=== PATIENT | male | born 1950 | race Caucasian/White ===

== ENCOUNTER → 2016-11-19 | Outpatient (CLI) | payer OTHER ==
[~2016-11-19] MED LIST: ASPCH81X PO; CALC200T PO; CLL250 PO; COEN1CAP37 PO; HYDR-5688 PO; LOSA1TAB PO; MULT-513 PO; OMEG10007 PO; PANT1TAB48 PO; PRAV20TA PO; TACR1CAP PO; TYLOTC500 PO; ZNTT/150 PO
--- NOTE | 2016-11-19 13:18 | DIAGNOSTIC IMAGING REPORT ---
RIGHT ANKLE MIN 3 VIEWS CLINICAL HISTORY: Right ankle fracture COMPARISON: 09/18/2016 DISCUSSION: There is a healing oblique/spiral fracture of the distal fibula. There is no change in alignment. Degenerative changes are present within the tibiotalar joint. There is a plantar calcaneal spur. There is medial malleolar spurring. There is a corticated ossicle adjacent the medial malleolus which is felt to be old. IMPRESSION: No change in alignment. Healing oblique/spiral fracture of distal fibula. Electronically signed by: Tha Snider M.D. 11/19/2016 1:16 PM Dictated Date/Time: 11/19/2016 1:15 PM
== END | disposition home or self-care (01) ==
LOC: C.RDSM 07:02
PROVIDERS: ATTEND Physical Medicine & Rehabilitation Sports Medicine
DX: S82.891A Other fracture of right lower leg, initial encounter for closed fracture (principal); X58.XXXA Exposure to other specified factors, initial encounter

== ENCOUNTER 2017-02-23 17:19 | Emergency (ER) | payer OTHER ==
[~2017-02-23] VITALS: Ht 208.3 cm; Wt 104.8 kg
[~2017-02-23 17:19] MED LIST changes: -COEN1CAP37 PO; -HYDR-5688 PO; -OMEG10007 PO; -ZNTT/150 PO
[2017-02-23 17:22] VITALS: TEMP 36.5; Ht 208.3 cm; Wt 104.8 kg
[2017-02-23] MEDS ORDERED: ZNTT/150 PO (17:55)
[2017-02-23] MEDS ORDERED: OMEG10007 PO (17:55)
[2017-02-23] MEDS ORDERED: COEN1CAP37 PO (17:55)
--- NOTE | 2017-02-23 18:14 | DIAGNOSTIC IMAGING REPORT ---
RIGHT HIP 2 VIEWS HISTORY: right hip pain Right COMPARISON: None. FINDINGS: There is no fracture or dislocation. Soft tissues are unremarkable. Mild osteoarthritis of the right hip. Surgical clips within the right groin. IMPRESSION: Mild right hip osteoarthritis. No fracture or dislocation. Electronically signed by: Skinny Avendano M.D. 02/23/2017 6:12 PM Dictated Date/Time: 02/23/2017 6:11 PM
--- NOTE | 2017-02-23 18:17 | DIAGNOSTIC IMAGING REPORT ---
LUMBAR SPINE 5 VIEWS HISTORY: right hip/leg pain COMPARISON: None. FINDINGS: There is no fracture. No subluxation. Partial fusion of the upper right sacroiliac joint. Mild facet degenerative changes seen within the lower lumbar spine. Moderate disc space narrowing at L3-L4 and L4-L5. Mild disc space narrowing within the lower thoracic spine and upper lumbar spine. IMPRESSION: 1. No fracture or subluxation within the lumbar spine. 2. Mild to moderate degenerative changes as described above. 3. Partial fusion of the right sacroiliac joint. Electronically signed by: Skinny Avendano M.D. 02/23/2017 6:15 PM Dictated Date/Time: 02/23/2017 6:13 PM
[2017-02-23] MEDS ORDERED: HYDR-5688 PO (18:49)
--- NOTE | 2017-02-23 18:52 | EMERGENCY ROOM VISIT NOTE ---
History First contact with patient: 17:27 Chief Complaint: LEG PAIN,LEG INJURY Stated Complaint: CAN'T PUT WEIGHT ON RT KNEE History of Present Illness The patient is a 66 year old male who presents to the Emergency Room with complaints of right leg pain and inability to bear weight. The patient states that he has had difficulty bearing weight on the right leg since last week. He reports that prior to developing the pain, he had been golfing, walking and mulching, which is increased activity from his normal. He reports that he has a shooting pain on the outside of the leg. He also has a pain in the right buttock. The pain improves after walking. The patient denies swelling or redness. He denies any specific injury to the leg. He denies any history of blood clots. He does have a history of a heart transplant and states he is unable to take anti-inflammatories. Review of Systems A complete 10 point review of systems was reviewed with the patient with pertinent positives and negatives as per history of present illness. All else were negative. Past Medical/Surgical History Medical Problems: (1) Hypertension Nos (2) LVAD (left ventricular assist device) present (3) Old Myocardial Infarct Social History Smoking Status: Never Smoker Marital Status: Housing Status: lives with family Occupation Status: employed Current/Historical Medications Scheduled Aspirin (Aspirin Chewable), 81 MG PO DAILY Calcium Carbonate-Vitamin D (Oscal 500/200 D-3), 1 TAB PO BID Coenzyme Q10 (Ubidecarenone) (Co Q-10), 200 MG PO QPM Fish Oil (Depauw-3), 1 CAP PO DAILY Losartan Potassium (Cozaar), 50 MG PO BID Multivitamins/Minerals (Mvi With Minerals), 1 TAB PO DAILY Mycophenolate Mofetil (Mycophenolate Mofetil), 500 MG PO BID Pravastatin (Pravachol ), 20 MG PO DAILY Ranitidine (Zantac), 150 MG PO DAILY Tacrolimus (Prograf), 2 MG PO BID Scheduled PRN Hydrocodone/Acetaminophen 5MG/325MG ([place] 5MG/325MG), 1-2 TABLET PO Q4H PRN for Pain Allergies Coded Allergies: No Known Allergies (Unverified , 02/23/17) Physical Exam Vital Signs Date Time Temp Pulse Resp B/P Pulse Ox O2 Delivery O2 Flow Rate FiO2 02/23/17 19:10 86 18 191/121 95 02/23/17 18:08 194/123 02/23/17 17:22 36.5 94 18 216/128 97 Room Air Physical Exam VITALS: Vitals are noted on the nurse's note and reviewed by myself. Vital signs stable. GENERAL: This is a 66-year-old male, in no acute distress, nondiaphoretic, well- developed well-nourished. SKIN: Capillary reflex less than 2 seconds. HEART: Regular rate and rhythm without murmurs gallops or rubs. LUNGS: Clear to auscultation bilaterally without wheezes, rales or rhonchi. MUSCULOSKELETAL: No significant tenderness to palpation of the right hip or femur. No tenderness of the lumbar spinous processes. Full range of motion of the lower extremities bilaterally. NEURO: Patient was alert and oriented to person place and time. Normal sensation to light and sharp touch. Medical Decision & Procedures ER Provider Diagnostic Interpretation: RIGHT HIP 2 VIEWS FINDINGS: There is no fracture or dislocation. Soft tissues are unremarkable. Mild osteoarthritis of the right hip. Surgical clips within the right groin. IMPRESSION: Mild right hip osteoarthritis. No fracture or dislocation. LUMBAR SPINE 5 VIEWS FINDINGS: There is no fracture. No subluxation. Partial fusion of the upper right sacroiliac joint. Mild facet degenerative changes seen within the lower lumbar spine. Moderate disc space narrowing at L3-L4 and L4-L5. Mild disc space narrowing within the lower thoracic spine and upper lumbar spine. IMPRESSION: 1. No fracture or subluxation within the lumbar spine. 2. Mild to moderate degenerative changes as described above. 3. Partial fusion of the right sacroiliac joint. Medications Administered Medications (Trade) Dose Ordered Sig/Joseph Route Start Time Stop Time Status Last Admin Dose Admin Acetaminophen/ Hydrocodone Bitart ([place] 5/325mg Home Pack) 1 homepack UD ONCE PO 02/23/17 19:00 02/23/17 19:01 DC 02/23/17 19:09 1 HOMEPACK Medical Decision Differential diagnosis includes sciatica, hip arthritis, bursitis, muscle strain , IT band syndrome, among others. The patient was evaluated as above. X-rays of the hip and lumbar spine were obtained and read by radiology which did show some degeneration but no acute findings. The patient likely has some arthritis and a do feel that he would benefit from follow-up with orthopedics. He was given a home pack and prescription of [place] for pain. He was instructed to follow-up with his primary care provider this week for possible orthopedic referral and further evaluation. He will return here for any new/worsening symptoms. He verbalized understanding of my assessment and treatment plan and was discharged home in good condition. The patient was independently evaluated by Dr. Hightower, ED attending physician, who agreed with my assessment and treatment plan. [place] Drug Monitoring Program Search Results: patient reviewed within database, no issues identified Impression Primary Impression: Leg pain, right Departure Information Dispostion Home / Self-Care Condition GOOD Prescriptions Hydrocodone/Acetaminophen 5MG/325MG ([place] 5MG/325MG) Tab 1-2 TABLET PO Q4H Y for Pain, #12 TAB For Initial Treatment Prov: Raya Roy PA-C 02/23/17 Referrals Dayton Palacios MD (PCP) Patient Instructions [facility] Additional Instructions You have been prescribed [place] to be used for pain control. Take 1-2 tablets every 4-6 hours as needed for pain. This is a narcotic medication. You cannot drive or consume alcohol while on this medicine. This medicine should only be used for pain that cannot be controlled with [id number] pain medicines. For pain control, you can use the following [id number] medicines (if >12 yo): - Regular strength (325mg/tab) Tylenol (acetaminophen) 2 tabs every 4-6 hours as needed. Do not exceed 12 tablets in a 24 hour period. Avoid taking more than 4 grams (4000 mg) of Tylenol per day. This includes any other sources of acetaminophen you may take on a regular basis. - Regular strength (200 mg/tab) Advil (ibuprofen) 1-2 tabs every 4-6 hours as needed. Do not exceed a dose of 3200 mg per day. Apply ice to the hip/leg as needed for pain. Follow-up with [facility] this week. Return to the emergency department with any worsening or new/concerning symptoms.
--- NOTE | 2017-02-23 18:57 | EMERGENCY ROOM VISIT NOTE ---
ED Visit Note First contact with patient: 17:27 This Patient was discussed with the physician Underwriting Sales Representative, Manuela Dos Santos PA-C. The pertinent historical and physical exam findings were confirmed. I agree with the studies ordered and with the interpretations of these studies. I agree with the disposition and care plan.
[2017-02-23] MEDS ORDERED: NORCO 5/325MG HOME PACK PO ONE (19:00)
[2017-02-23 19:10] VITALS: BP 191/121; PULSE 86; O2SAT 95
== END 2017-02-23 19:10 | disposition home or self-care (01) ==
LOC: C.EDB 17:20 → C.EDD 19:10
DX: M79.604 Pain in right leg (principal); Z94.1 Heart transplant status; I10 Essential (primary) hypertension; I25.2 Old myocardial infarction; Z79.82 Long term (current) use of aspirin; Z79.899 Other long term (current) drug therapy

== ENCOUNTER → 2017-05-21 | Outpatient (CLI) | payer OTHER ==
[~2017-05-21] MED LIST changes: +COEN1CAP37 PO; +HYDR-5688 PO; +OMEG10007 PO; -PANT1TAB48 PO; -TYLOTC500 PO; +ZNTT/150 PO
--- NOTE | 2017-05-21 09:17 | DIAGNOSTIC IMAGING REPORT ---
RIGHT ANKLE MIN 3 VIEWS HISTORY: 66 years-old Male RIGHT DISTAL FIBULA FX Right COMPARISON: Right ankle radiographs 11/19/2016 TECHNIQUE: 3 views of the right ankle FINDINGS: There is complete healing of the previously described oblique fracture of the distal fibula. Decreased amount of soft tissue swelling is seen from comparison study. There is no acute fracture or dislocation identified. There is prominent spurring about the calcaneus, talonavicular joint and tibiotalar joint. There is a small joint effusion about the ankle. IMPRESSION: 1. Complete healing of the previously described oblique fracture of the distal fibula with decreased amount of soft tissue swelling. 2. No acute fracture or dislocation is identified. The above report was generated using voice recognition software. It may contain grammatical, syntax or spelling errors. Electronically signed by: Gabriel Lopez M.D. 05/21/2017 9:15 AM Dictated Date/Time: 05/21/2017 9:13 AM
== END | disposition home or self-care (01) ==
LOC: C.RDSM 12:20
PROVIDERS: ATTEND Physician Assistant
DX: S82.821D Torus fracture of lower end of right fibula, subsequent encounter for fracture with routine healing (principal); X58.XXXD Exposure to other specified factors, subsequent encounter

== ENCOUNTER 2025-01-26 19:29 | Observation (INO) ==
[2025-01-26 20:04] LABS: Basophils # (auto) 0.03 K/uL (0.00-0.20); Basophils % (auto) 0.5 %; Eosinophils # (auto) 0.13 K/uL (0.00-0.50); Hematocrit (blood only) 27.8 % (42.0-52.0); Hemoglobin 9.6 g/dl (14.0-18.0); Immature Granulocytes # (auto) 0.04 K/uL (0.01-0.20); Immature Granulocytes % (auto) 0.6 %; Lymphocytes # (auto) 0.68 K/uL (1.20-3.40); Lymphocytes % (auto) 10.4 %; Mean Corpuscular Hemoglobin 29.6 pg (25.0-34.0); Mean Corpuscular Hgb Conc 34.5 g/dL (32.0-36.0); Mean Corpuscular Volume 85.8 fL (80.0-100.0); Mean Platelet Volume 9.4 fL (9.4-12.4); Monocytes % (auto) 12.2 %; Neutrophils # (auto) 4.86 K/uL (1.40-6.50); Neutrophils % (auto) 74.3 %; Platelet Count 178 K/uL (130-400); RDW Coefficient of Variation 12.7 % (11.5-14.5); RDW Standard Deviation 39.4 fL (36.4-46.3); Red Blood Count 3.24 M/uL (4.70-6.10); White Blood Count 6.54 K/ul (4.8-10.8)
[2025-01-26 20:23] LABS: Albumin Globulin Ratio 1.2 (0.9-2); Albumin Level 3.4 gm/dl (3.4-5.0); BUN Creatinine Ratio 15.9 (10-20); Bilirubin,Total 0.5 mg/dl (0.2-1.0); Calcium 9.2 mg/dl (8.6-10.3); Creatinine Clr Calc Pharmacy 38.2 ml/min; Globulin 2.8 gm/dl (2.5-4.0); Magnesium 1.8 mg/dl (1.7-2.4); Potassium 4.3 mmol/L (3.5-5.1); Total Protein 6.2 gm/dl (6.0-8.3)
--- NOTE | 2025-01-26 20:23 | Emergency Department Note ---
Impression & Plan Fever ED Provider Note HISTORY OF PRESENT ILLNESS: Patient is a 74-year-old male presenting with fever. Patient reports that he developed a fever today, with his most recent fever being 101F at 1800. He states that he took Tylenol shortly after his fever at around 1605. Patient reports he is a heart transplant patient as of 2013. He is on CellCept. Reports that 1 week ago he had spinal surgery performed at [facility]. Reports he was doing well up until today, when he started having pain in his right lateral buttock. He states that this pain is similar to his previous pain prior to spinal surgery. Denies any new numbness or tingling down his legs. Denies any bowel or bladder incontinence. He denies any chest pain or shortness of breath. Denies any anticoagulation or antiplatelet therapies. He reports he was previously on before the spinal surgery, but has not initiated that again yet. He denies any recent sick contact exposures. Denies any abdominal pain, nausea or vomiting. He denies being drainage from his spinal incision. ROS: as above PHYSICAL EXAM: Constitutional: Patient appears in no acute distress. HENT: Head: Normocephalic and atraumatic. Eyes: EOMI, PERRL Mouth/Throat: Mucous membranes moist. Neck: Trachea midline. Neck supple. Cardiovascular: RRR, No murmurs, rubs or gallops. Intact distal pulses. Pulmonary/Chest: No respiratory distress. Breath sounds clear and equal bilaterally. No wheezes or rales. Abdominal: Abdomen soft, no tenderness, rebound or guarding. Back: No midline spinal tenderness, no paraspinal tenderness, no CVA tenderness. Lower lumbar spinal incision is well-healed. No obvious drainage from the wound. Musculoskeletal: No edema, tenderness or deformity noted. Skin: Warm and dry. No rash, erythema, pallor or cyanosis Psychiatric: Appropriate mood and affect for situation. Neurological: Alert and keenly responsive. CN II-XII grossly intact, moving all extremities equally and fully. MDM: - Vitals signs showed hypertension - History obtained via patient. History as above. - Chronic conditions affecting care: heart transplant; GERD; HLD - Differential diagnoses include, but are not limited to: Pneumonia; UTI; viral syndrome; post op infection; bacteremia - Order placed for continuous cardiac monitoring. At this time, monitor showed rate of 77 bpm with normal sinus rhythm, per my interpretation. - External medical records reviewed. Nephrology office visit note dated 12/18/2024 was reviewed. Patient follows in the clinic for stage III CKD. Baseline creatinine is 1.7-2.0. - EKG image interpreted by myself showed normal sinus rhythm. Rate 85 bpm. QT 384. No acute ischemic changes. Noted to have a right bundle branch block, which has been seen on previous EKGs. - Laboratory workup interpreted by myself showed normal WBC; normal PT/INR; stable electrolytes; normal procalcitonin; normal lactic acid; baseline CKD (Cr 1.95) - UA negative for infection - Blood cultures obtained, given patient's immunocompromise state. - Viral respiratory panel negative - CXR image reviewed by myself is negative for pneumonia, per my interpretation. - Given 50 mcg IV fentanyl for pain control. 2 g IV Rocephin empirically. On reassessment, the patient is sitting much more comfortably in bed. He reports his pain is improved. - CT lumbar spine wo contrast obtained. - Patient has been afebrile while in the emergency department. However, given his immunocompromise state, will admit for observation until cultures result. Unclear source of patient's fever at this time. He does not show any concern for surgical incision infection, as his incision is clean/dry/intact. - Discussion was had with caseworker about patient's case and need for admission - Hospitalist consulted for admission - [facility] [facility] for further evaluation and management. ASSESSMENT AND PLAN: Diagnosis: fever Plan: admit Past Med/Surg History Problem List Fever (Acute) Lumbar stenosis with neurogenic claudication Lumbar radiculopathy Status post heart transplant 2013 follows [facility] -- and follows with Dr Roland [id number] locally Vitamin D deficiency Hypertension Chronic kidney disease with active medical management without dialysis, stage 3 (moderate) COVID (Acute) Benign prostatic hyperplasia with urinary obstruction GERD (gastroesophageal reflux disease) Dysphagia Anemia Encounter for pre-operative examination LVAD (left ventricular assist device) present (Chronic) april 2013 Bacteremia (Acute) Leg pain, right (Acute) Old myocardial infarct (Acute) Ocular hypertension, unspecified eye (Acute) Heart transplanted (Acute) Medical History SCC (squamous cell carcinoma) Myocardial Infarction april 2013 during a cardiac cath Surgical History Hx of heart surgery placement of LVAD 04/2013 [facility] History of left ventricular assist device (LVAD) april 2013 for ~1 year prior to heart transplant following cardiac arrest during a cardiac cath. (PT DOES NOT CURRENLTY HAVE LVAD) History of colonoscopy Status post Mohs surgery History of tonsillectomy History of cardiac cath april 2013 Family History Family/Other No pertinent family history Other No family history of adverse response to anesthesia Social History Smoking Status: Former smoker Tobacco Type: Cigarettes Age Started Using Tobacco: 19; Age Quit Using Tobacco: 39; Second Hand Exposure: No; Do You Dip or Chew Tobacco: No; Hx Alcohol Use: Yes Alcohol type: beer and hard liquor Alcohol Intake Frequency: 2-3 x/Week Hx Substance Use: No Preferred Language: Turkmen Communication Ability: Effective Visual Impairment: Limited Hearing Ability: Normal Floor Finisher Helper Required: No Beliefs That Will Affect Care: None Current Living Situation: Spouse current occupational status: retired 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 How many Children do You have: 4 Feels Safe at Home: Yes Diet: regular caffeine: Yes (1-2 coffees daily) Dental Care, Regularly: Yes Physical Activity Frequency: 1-2 Times per Week Seatbelt Use: always Sunscreen Use: Yes Do you think of yourself as: straight/heterosexual Gender Identity: Male Assistive Devices: Glasses Allergies Allergies Allergy/AdvReac Type Severity Reaction Status Date / Time No Known Allergies Allergy Verified 01/27/25 00:09 Home Meds Home Medications Medication Instructions Recorded Confirmed calcium 500 mg (as 1 tab PO DAILY 07/05/18 01/27/25 carbonate)-vitamin D3 5 mcg (200 unit) tablet (Calcium 500 + D) mycophenolate mofetil 250 mg 250 mg PO BID 07/05/18 01/27/25 capsule (CellCept) amlodipine 10 mg tablet 5 mg PO HS 06/28/20 01/27/25 amoxicillin 500 mg capsule 2,000 mg PO ONCE PRN dental 06/28/20 01/27/25 procedures carbidopa 25 mg-levodopa 100 mg 2 tab PO BID 10/23/23 01/27/25 tablet fluocinolone 0.01 % topical cream 1 applic topical BID PRN Skin 10/23/23 01/27/25 Irritation metoprolol succinate 25 mg 25 mg PO HS 10/23/23 01/27/25 tablet,extended release 24 hr sirolimus 1 mg tablet 2 mg PO QAM 10/23/23 01/27/25 solifenacin 5 mg tablet 5 mg PO HS 10/23/23 01/27/25 tamsulosin 0.4 mg capsule 0.4 mg PO BID 10/23/23 01/27/25 rasagiline 1 mg tablet 1 mg PO QAM 03/17/24 01/27/25 valsartan 80 mg tablet 80 mg PO HS 03/17/24 01/27/25 Results & Data (ED) Vital Signs Vital Signs - 24 hr 01/26/25 19:41 01/26/25 20:24 01/26/25 21:30 Temperature 37.4 C Temperature Source Oral Pulse Rate 87 85 Pulse Rate [Apical] 78 Pulse Rate from SpO2 Sensor Respiratory Rate 16 18 Respiratory Effort / Characteristics Respiratory Depth Blood Pressure 144/74 H Blood Pressure [Right Arm] 123/74 Blood Pressure Mean 97 Blood Pressure Mean [Right Arm] 90 Blood Pressure Position [Right Arm] Pulse Oximetry 93 95 Oxygen Delivery Method Room Air Room Air Sepsis Recent Fever Within 48 Hours Yes Sepsis New/Unexplained Change in Mental Status No Sepsis Action Taken by Nursing No Action Required 01/26/25 23:06 01/26/25 23:08 01/26/25 23:11 Temperature 37.6 C Temperature Source Oral Pulse Rate 77 Pulse Rate [Apical] 76 Pulse Rate from SpO2 Sensor 76 Respiratory Rate 23 19 Respiratory Effort / Characteristics Non-Labored Spontaneous Respiratory Depth Normal Blood Pressure Blood Pressure [Right Arm] 114/74 Blood Pressure Mean Blood Pressure Mean [Right Arm] 87 Blood Pressure Position [Right Arm] Lying Pulse Oximetry 95 94 Oxygen Delivery Method Room Air Sepsis Recent Fever Within 48 Hours Sepsis New/Unexplained Change in Mental Status Sepsis Action Taken by Nursing 01/26/25 23:12 01/26/25 23:32 01/26/25 23:32 Temperature Temperature Source Pulse Rate 77 Pulse Rate [Apical] Pulse Rate from SpO2 Sensor 77 Respiratory Rate 21 Respiratory Effort / Characteristics Respiratory Depth Blood Pressure 136/76 136/76 Blood Pressure [Right Arm] Blood Pressure Mean 95 95 Blood Pressure Mean [Right Arm] Blood Pressure Position [Right Arm] Pulse Oximetry 92 Oxygen Delivery Method Sepsis Recent Fever Within 48 Hours Sepsis New/Unexplained Change in Mental Status Sepsis Action Taken by Nursing 01/26/25 23:33 01/27/25 00:10 Temperature 37.0 C Temperature Source Oral Pulse Rate Pulse Rate [Apical] Pulse Rate from SpO2 Sensor 79 Respiratory Rate Respiratory Effort / Characteristics Respiratory Depth Blood Pressure Blood Pressure [Right Arm] Blood Pressure Mean Blood Pressure Mean [Right Arm] Blood Pressure Position [Right Arm] Pulse Oximetry 96 Oxygen Delivery Method Sepsis Recent Fever Within 48 Hours Sepsis New/Unexplained Change in Mental Status Sepsis Action Taken by Nursing Laboratory Data 01/26/25 19:40 01/26/25 19:40 Lab Results 01/26/25 01/26/25 Range/Units 19:40 22:45 WBC 6.54 (4.8-10.8) K/ul RBC 3.24 L (4.70-6.10) M/uL Hgb 9.6 L (14.0-18.0) g/dl Hct 27.8 L (42.0-52.0) % MCV 85.8 (80.0-100.0) fL MCH 29.6 (25.0-34.0) pg MCHC 34.5 (32.0-36.0) g/dL RDW Std Deviation 39.4 (36.4-46.3) fL RDW Coeff of Ree 12.7 (11.5-14.5) % Plt Count 178 (130-400) K/uL MPV 9.4 (9.4-12.4) fL Immature Gran % (Auto) 0.6 % Neut % (Auto) 74.3 % Lymph % (Auto) 10.4 % [place] % (Auto) 12.2 % Eos % (Auto) 2.0 % Baso % (Auto) 0.5 % Neut # (Auto) 4.86 (1.40-6.50) K/uL Lymph # (Auto) 0.68 L (1.20-3.40) K/uL [place] # (Auto) 0.80 H (0.11-0.59) K/uL Eos # (Auto) 0.13 (0.00-0.50) K/uL Baso # (Auto) 0.03 (0.00-0.20) K/uL Immature Gran # (Auto) 0.04 (0.01-0.20) K/uL PT 10.6 (9.0-12.0) Seconds INR 1.0 (0.9-1.1) APTT 25 (21-31) Seconds PTT Ratio 0.9 Sodium 138 (136-145) mmol/L Potassium 4.3 (3.5-5.1) mmol/L Chloride 105 (98-107) mmol/L Carbon Dioxide 27 (21-32) mmol/L Anion Gap 6 (3-11) BUN 31 H (6-23) mg/dl Creatinine 1.95 H (0.6-1.4) mg/dl Est Cr Clr Drug Dosing 38.2 ml/min eGFR 35.22 BUN/Creatinine Ratio 15.9 (10-20) Glucose 103 H (70-99(Fasting)) mg/dl Lactate 0.7 (0.4-2.0) mmol/L Calcium 9.2 (8.6-10.3) mg/dl Magnesium 1.8 (1.7-2.4) mg/dl Total Bilirubin 0.5 (0.2-1.0) mg/dl AST 12 L (13-39) U/L ALT 8 (7-52) U/L Alkaline Phosphatase 51 (34-104) U/L Troponin I High Sens 4.6 (0-20) pg/ml Total Protein 6.2 (6.0-8.3) gm/dl Albumin 3.4 (3.4-5.0) gm/dl Globulin 2.8 (2.5-4.0) gm/dl Albumin/Globulin Ratio 1.2 (0.9-2) Procalcitonin 0.16 (0-0.5) ng/ml Urine Color Yellow Urine Appearance Clear (Clear) Urine pH 5.5 (4.5-7.5) Ur Specific [place] 1.020 (1.000-1.030) Urine Protein 1+ H (Negative) Urine Glucose (UA) Negative (Negative) Urine Ketones Trace H (Negative) Urine Blood Negative (Negative) Urine Nitrite Negative (Negative) Urine Bilirubin Negative (Negative) Urine Urobilinogen Negative (Negative) Ur Leukocyte Esterase Negative (Negative) Urine WBC (Auto) 0-5 (0-5) /hpf Urine RBC (Auto) 0-2 (0-2) /hpf U Hyaline Cast (Auto) 0-2 (0-2) /lpf U Epithel Cells (Auto) 0-2 (0-2) /hpf Urine Bacteria (Auto) None Seen (None Seen) Adenovirus (PCR) Not Detected (NotDetected) B. pertussis DNA (PCR) Not Detected (NotDetected) B.parapertussis DNA PCR Not Detected (NotDetected) C. pneumoniae DNA (PCR) Not Detected (NotDetected) Coronavirus OC43 (PCR) Not Detected (NotDetected) Coronavirus HKU1 (PCR) Not Detected (NotDetected) Coronavirus 229E (PCR) Not Detected (NotDetected) SARS-CoV-2 (PCR) Not Detected (NotDetected) Coronavirus NL63 (PCR) Not Detected (NotDetected) Human Metapneumovir PCR Not Detected (NotDetected) Influenza Type A (PCR) Not Detected (NotDetected) Influenza Type B (PCR) Not Detected (NotDetected) M. pneumoniae (PCR) Not Detected (NotDetected) Parainfluenza 1 (PCR) Not Detected (NotDetected) Parainfluenza 2 (PCR) Not Detected (NotDetected) Parainfluenza 3 (PCR) Not Detected (NotDetected) Parainfluenza 4 (PCR) Not Detected (NotDetected) RSV (PCR) Not Detected (NotDetected) Entero/Rhino (PCR) Not Detected (NotDetected) Administered Medications Discontinued Medications Fentanyl Citrate (Fentanyl Citrate Pf 100 Mcg/2 Ml Vial) 50 mcg IV NOW STA Stop: 01/26/25 22:18 Last Admin: 01/26/25 22:44 Dose: 50 mcg Documented By: ANABELLE Ceftriaxone Sodium (Rocephin) 2,000 mg in 50 mls @ 100 mls/hr IV NOW STA Stop: 01/27/25 00:13 Last Infusion: 01/27/25 00:33 Dose: Infused Documented By: Admin: 01/26/25 23:59 Dose: 100 mls/hr Documented By: LAURA Imaging Data Radiologist's Impression: Chest X-Ray 01/26/25 19:55 Exam(s): XR CXR 1 VIEW EXAM: XR Chest, 1 View CLINICAL HISTORY: Reason for exam: Sepsis. TECHNIQUE: Frontal view of the chest. COMPARISON: Prior chest x-ray from March 19, 2024. FINDINGS: Lungs: Unremarkable. No consolidation. Pleural space: There is blunting the left costophrenic angle. No pneumothorax. Heart: Unremarkable. No cardiomegaly. Mediastinum: Unremarkable. Normal mediastinal contour. Bones/joints: Status post median sternotomy with sternal wires intact. No acute fracture. IMPRESSION: No evidence of acute cardiopulmonary process. Electronically signed by: Lois Jordan MD 01/26/25 22:31 PM Discharge Plan Visit Data Chief Complaint: Fever Stated Complaint: FEVER, WEAKNESS ED Provider: Nya Pace Discharge Problem: Fever Forms Stand Alone Forms: [facility] Prescriptions Prescriptions: No Action sirolimus 1 mg tablet 2 mg PO QAM solifenacin 5 mg tablet 5 mg PO HS tamsulosin 0.4 mg capsule 0.4 mg PO BID carbidopa-levodopa 25-100 mg tablet 2 tab PO BID fluocinolone 0.01 % cream 1 applic topical BID PRN (Reason: Skin Irritation) metoprolol succinate 25 mg tablet extended release 24 hr 25 mg PO HS valsartan 80 mg tablet 80 mg PO HS rasagiline 1 mg tablet 1 mg PO QAM mycophenolate mofetil [CellCept] 250 mg capsule 250 mg PO BID calcium carbonate-vitamin D3 [Calcium 500 + D] 500 mg(1,250mg) -200 unit Tablet 1 tab PO DAILY amlodipine 10 mg Tablet 5 mg PO HS amoxicillin 500 mg capsule 2,000 mg PO ONCE PRN (Reason: dental procedures) Referrals Referrals: Uziel Ahmadi MD [Primary Care Provider] -
[2025-01-26 20:30] LABS: Troponin I High Sensitivity 4.6 pg/ml (0-20)
[2025-01-26 20:33] LABS: Partial Thromboplastin Ratio 0.9; Partial Thromboplastin Time 25 Seconds (21-31); Prothrombin Time 10.6 Seconds (9.0-12.0)
[2025-01-26 21:00] LABS: Adenovirus PCR Not Detected (NotDetected); Bordetella parapertussis PCR Not Detected (NotDetected); Bordetella pertussis PCR Not Detected (NotDetected); Chlamydia pneumoniae PCR Not Detected (NotDetected); Coronavirus 229E PCR Not Detected (NotDetected); Coronavirus CoV-2 (COVID19)PCR Not Detected (NotDetected); Coronavirus HKU1 PCR Not Detected (NotDetected); Coronavirus NL63 PCR Not Detected (NotDetected); Coronavirus OC43PCR Not Detected (NotDetected); Human Metapneumovirus PCR Not Detected (NotDetected); Influenza A PCR Not Detected (NotDetected); Influenza B PCR Not Detected (NotDetected); Mycoplasma pneumoniae PCR Not Detected (NotDetected); Parainfluenza Virus 1 PCR Not Detected (NotDetected); Parainfluenza Virus 2 PCR Not Detected (NotDetected); Parainfluenza Virus 3 PCR Not Detected (NotDetected); Parainfluenza Virus 4 PCR Not Detected (NotDetected); Respiratory Syncytial VirusPCR Not Detected (NotDetected); Rhinovirus/Enterovirus PCR Not Detected (NotDetected)
--- NOTE | 2025-01-26 22:32 | XRay Report ---
Exam(s): XR CXR 1 VIEW EXAM: XR Chest, 1 View CLINICAL HISTORY: Reason for exam: Sepsis. TECHNIQUE: Frontal view of the chest. COMPARISON: Prior chest x-ray from March 19, 2024. FINDINGS: Lungs: Unremarkable. No consolidation. Pleural space: There is blunting the left costophrenic angle. No pneumothorax. Heart: Unremarkable. No cardiomegaly. Mediastinum: Unremarkable. Normal mediastinal contour. Bones/joints: Status post median sternotomy with sternal wires intact. No acute fracture. IMPRESSION: No evidence of acute cardiopulmonary process. Electronically signed by: Lois Jordan MD 01/26/25 22:31 PM
[2025-01-26] MEDS: fentaNYL citrate PF 100 MCG/2 ML VIAL IV STA (22:44)
[2025-01-26 22:58] LABS: Appearance Urine Clear (Clear); Bacteria Urine Automated None Seen (None Seen); Bilirubin Urine Negative (Negative); Blood Urine Negative (Negative); Cast Urine Automated 0-2 /lpf (0-2); Color Urine Yellow; Epithelial Cell Urine Auto 0-2 /hpf (0-2); Glucose Urine UA Negative (Negative); Ketones Urine Trace (Negative); Leukocyte Esterase Urine Negative (Negative); Nitrite Urine Negative (Negative); Protein Urine 1+ (Negative); RBC Urine Automated 0-2 /hpf (0-2); Urobilinogen Urine Negative (Negative); WBC Urine Automated 0-5 /hpf (0-5); pH Urine 5.5 (4.5-7.5)
[2025-01-26] MEDS: cefTRIAXone SODIUM 2,000 MG/50 ML BAG IV STA (23:59)
--- NOTE | 2025-01-27 00:40 | History & Physical Report ---
Date of Service January 27, 2025 Assessment & Plan (1) Fever: (2) Anemia: (3) Heart transplanted: Plan 74-year-old male PMHx heart transplant on CellCept (2013), HTN, CKD stage III, BPH, GERD, ocular hypertension, and anemia who presents for reported fever day [employer]. ED evaluation reveals no leukocytosis, H&H 9.6/27.8; PT/INR WNL; CMP creatinine 1.95, BUN 31, glucose 103, AST 12; procalcitonin 0.16; UA without infection; BioFire negative; CXR without acute findings; lumbar spine CT pending official read; EKG NSR with RBBB at 85 bpm. Provided with ceftriaxone 2 g IV and fentanyl 50 mcg IV in ED. #Fever unknown origin Fever day prior to arrival, Tmax 101 F and alleviated with Tylenol. Heart transplant patient (2013), on CellCept. No clear source of infection. Provided with 1 dose ceftriaxone 2 g IV in ED. No murmur auscultated on exam. Last dental procedure 2 months ago, took amoxicillin. Area of recent surgical intervention well healing. - CBC w/o leukocytosis; CMP without acute findings; BioFire negative - CBC am - UA negative for infection - CXR without acute findings - Lumbar spine CT pending official read - Cont. Ceftriaxone empirically - pending blood cx - If no clear source or if clinical course changes, can consider echo (most recent 2022) #Anemia Anemia per prior history, no active bleeding per patient. With history of CKD. - CBC H/H 9.6/27.8 - Iron panel, UIBC, vitamin B12, folate pending - CBC am #Heart transplant recipient- 2013 for ischemic cardiomyopathy, follows with cardiology most recent visit being 06/09/2024; CellCept, sirolimus - continue #PD- Carbidopa levodopa, rasagiline - continue #BPH- Solifenacin, tamsulosin - continue #HTN- Amlodipine, metoprolol succinate, valsartan - continue #CKD stage III- Follows with nephrology, most recent visit 06/22/2024, baseline creatinine 1.7-2, creatinine at admission 1.95- BMP am Dispo: Admit, med/sx VTE prophylaxis: SCD This document was dictated utilizing [employer]. Please excuse any grammatical errors that may be secondary to use of this software. Admission and Anticipated Discharge Date Admission Date: 01/27/2025 History of Present Illness Chief Complaint: Fever Primary Care Provider: Uziel Ahmadi MD 74-year-old male PMHx heart transplant on CellCept (2013), HTN, CKD stage III, BPH, GERD, ocular hypertension, and anemia who presents for reported fever day [employer]. Reports fever of 101 F with associated sweating on the day of arrival. Relieved with Tylenol. Seen at [facility] approximately 1 week [employer] for lumbar fusion, states that the area feels that is healing well and he is not having much pain or many symptoms to the area. Did have some buttocks tingling which has resolved, occasional feeling of "darts to skin" on LLE which is relieved with rubbing the area. No current pain. Otherwise specifically denies SOB, cough, URI symptoms, LUTS, skin lesions, or abdominal pain/N/V/D/C. Also denies chest pain or palpitations. Has not been around anyone that has been sick. Reports that his last dental procedure was approximately 2 months ago which was a cleaning and he took his amoxicillin as prescribed. ED evaluation reveals no leukocytosis, H&H 9.6/27.8; PT/INR WNL; CMP creatinine 1.95, BUN 31, glucose 103, AST 12; procalcitonin 0.16; UA without infection; BioFire negative; CXR without acute findings; lumbar spine CT pending official read; EKG NSR with RBBB at 85 bpm. Provided with ceftriaxone 2 g IV and fentanyl 50 mcg IV in ED. Please see Dr. Goncalves's attestation for adjustments/additions to treatment plan. Allergies Allergy/AdvReac Type Severity Reaction Status Date / Time No Known Allergies Allergy Verified 01/27/25 00:09 Home Medications Medication Instructions Recorded Confirmed Type calcium 500 mg (as 1 tab PO DAILY 07/05/18 01/27/25 History carbonate)-vitamin D3 5 mcg (200 unit) tablet (Calcium 500 + D) mycophenolate mofetil 250 mg 250 mg PO BID 07/05/18 01/27/25 History capsule (CellCept) amlodipine 10 mg tablet 5 mg PO HS 06/28/20 01/27/25 History amoxicillin 500 mg capsule 2,000 mg PO ONCE PRN dental 06/28/20 01/27/25 History procedures carbidopa 25 mg-levodopa 100 mg 2 tab PO BID 10/23/23 01/27/25 History tablet fluocinolone 0.01 % topical cream 1 applic topical BID PRN Skin 10/23/23 History Irritation metoprolol succinate 25 mg 25 mg PO HS 10/23/23 01/27/25 History tablet,extended release 24 hr sirolimus 1 mg tablet 2 mg PO QAM 10/23/23 01/27/25 History solifenacin 5 mg tablet 5 mg PO HS 10/23/23 01/27/25 History tamsulosin 0.4 mg capsule 0.4 mg PO BID 10/23/23 01/27/25 History rasagiline 1 mg tablet 1 mg PO QAM 03/17/24 01/27/25 History valsartan 80 mg tablet 80 mg PO HS 03/17/24 01/27/25 History gabapentin 300 mg capsule 300 mg PO BID 01/27/25 01/27/25 History Past Med/Surg History Problem List Fever (Acute) Lumbar stenosis with neurogenic claudication Lumbar radiculopathy Status post heart transplant 2013 follows with [facility] [place] annually -- and follows with Dr Roland [id number] locally Vitamin D deficiency Hypertension Chronic kidney disease with active medical management without dialysis, stage 3 (moderate) COVID (Acute) Benign prostatic hyperplasia with urinary obstruction GERD (gastroesophageal reflux disease) Dysphagia Anemia Encounter for pre-operative examination LVAD (left ventricular assist device) present (Chronic) april 2013 Bacteremia (Acute) Leg pain, right (Acute) Old myocardial infarct (Acute) Ocular hypertension, unspecified eye (Acute) Heart transplanted (Acute) Medical History SCC (squamous cell carcinoma) Myocardial Infarction april 2013 during a cardiac cath Surgical History Hx of heart surgery placement of LVAD 04/2013 [facility] History of left ventricular assist device (LVAD) april 2013 for ~1 year prior to heart transplant following cardiac arrest during a cardiac cath. (PT DOES NOT CURRENLTY HAVE LVAD) History of colonoscopy Status post Mohs surgery History of tonsillectomy History of cardiac cath april 2013 Family History Family/Other No pertinent family history Other No family history of adverse response to anesthesia Social History Smoking Status: Former smoker Tobacco Type: Cigarettes Age Started Using Tobacco: 19; Age Quit Using Tobacco: 39; Second Hand Exposure: No; Do You Dip or Chew Tobacco: No; Hx Alcohol Use: Yes Alcohol type: wine Alcohol Intake Frequency: 2-3 x/Week Hx Substance Use: No Preferred Language: Senegalese Communication Ability: Effective Visual Impairment: Limited Hearing Ability: Normal Geophysical Manager Required: No Beliefs That Will Affect Care: None Current Living Situation: Spouse Current Living Situation Comment: [facility] at [facility] current occupational status: retired current occupation: [place] [employer] How many Children do You have: 4 Other Information That Helps Us Care for You: No Feels Safe at Home: Yes Safety Concerns: Feels Safe At This Time Diet: regular caffeine: Yes (1-2 coffees daily) Dental Care, Regularly: Yes Physical Activity Frequency: 1-2 Times per Week Seatbelt Use: always Sunscreen Use: Yes Do you think of yourself as: straight/heterosexual Gender Identity: Male Assistive Devices: Cane and Walker Review of Systems Review of Systems: All systems reviewed & are unremarkable except as noted in Subjective Physical Exam Physical Exam: General: No acute distress Skin: Warm and dry; No nodules on skin; nail beds without red/linear lesions; surgical area well healing Head: Normocephalic, atraumatic Eyes: PERRL, conjunctivae clear, sclera non-icteric ENT: External ear and ear canal without swelling; nose atraumatic; good de ntition, tongue normal appearance, pharynx normal Neck: Supple, no LAD Cardio: RRR, no M/G/R, S2 slightly louder than S1 Resp: No respiratory distress, Lungs CTA in all lobes bilaterally, no wheezes, rales, or rhonchi Abdomen: Soft, symmetric, nontender; No masses or hepatosplenomegaly; Bowel sounds normoactive MSK: No deformities; pulses palpable and equal; no edema. Neuro: Awake, alert; Sensation intact bilaterally; CN grossly intact Psych: Appropriate mood and affect; good judgement and insight. present in room at time of visit. Results & Data Results & Data Vital Signs (Past 12 Hours) Vital Signs Temp Pulse Pulse Resp BP BP Pulse Ox 01/27/25 00:10 37.0 C 01/26/25 23:33 96 01/26/25 23:32 136/76 01/26/25 23:32 136/76 01/26/25 23:12 77 21 92 01/26/25 23:11 37.6 C 01/26/25 23:08 76 19 114/74 94 01/26/25 23:06 77 23 95 01/26/25 21:30 78 18 123/74 95 01/26/25 20:24 85 01/26/25 19:41 37.4 C 87 16 144/74 H 93 O2 Del Method 01/27/25 00:10 01/26/25 23:33 01/26/25 23:32 01/26/25 23:32 01/26/25 23:12 01/26/25 23:11 01/26/25 23:08 Room Air 01/26/25 23:06 01/26/25 21:30 Room Air 01/26/25 20:24 01/26/25 19:41 Room Air Laboratory Results 01/26/25 20:42 Aerobic Blood Culture - Pending Blood Anaerobic Blood Culture - Pending 01/26/25 19:40 Aerobic Blood Culture - Pending Blood Anaerobic Blood Culture - Pending 01/26/25 01/26/25 22:45 19:40 WBC 6.54 RBC 3.24 L Hgb 9.6 L Hct 27.8 L MCV 85.8 MCH 29.6 MCHC 34.5 RDW Std Deviation 39.4 RDW Coeff of Ree 12.7 Plt Count 178 MPV 9.4 Immature Gran % (Auto) 0.6 Neut % (Auto) 74.3 Lymph % (Auto) 10.4 Fleming % (Auto) 12.2 Eos % (Auto) 2.0 Baso % (Auto) 0.5 Neut # (Auto) 4.86 Lymph # (Auto) 0.68 L Fleming # (Auto) 0.80 H Eos # (Auto) 0.13 Baso # (Auto) 0.03 Immature Gran # (Auto) 0.04 PT 10.6 INR 1.0 APTT 25 PTT Ratio 0.9 Sodium 138 Potassium 4.3 Chloride 105 Carbon Dioxide 27 Anion Gap 6 BUN 31 H Creatinine 1.95 H Est Cr Clr Drug Dosing 38.2 eGFR 35.22 BUN/Creatinine Ratio 15.9 Glucose 103 H Lactate 0.7 Calcium 9.2 Magnesium 1.8 Total Bilirubin 0.5 AST 12 L ALT 8 Alkaline Phosphatase 51 Troponin I High Sens 4.6 Total Protein 6.2 Albumin 3.4 Globulin 2.8 Albumin/Globulin Ratio 1.2 Procalcitonin 0.16 Urine Color Yellow Urine Appearance Clear Urine pH 5.5 Ur Specific Nichols 1.020 Urine Protein 1+ H Urine Glucose (UA) Negative Urine Ketones Trace H Urine Blood Negative Urine Nitrite Negative Urine Bilirubin Negative Urine Urobilinogen Negative Ur Leukocyte Esterase Negative Urine WBC (Auto) 0-5 Urine RBC (Auto) 0-2 U Hyaline Cast (Auto) 0-2 U Epithel Cells (Auto) 0-2 Urine Bacteria (Auto) None Seen Adenovirus (PCR) Not Detected B. pertussis DNA (PCR) Not Detected B.parapertussis DNA PCR Not Detected C. pneumoniae DNA (PCR) Not Detected Coronavirus OC43 (PCR) Not Detected Coronavirus HKU1 (PCR) Not Detected Coronavirus 229E (PCR) Not Detected SARS-CoV-2 (PCR) Not Detected Coronavirus NL63 (PCR) Not Detected Human Metapneumovir PCR Not Detected Influenza Type A (PCR) Not Detected Influenza Type B (PCR) Not Detected M. pneumoniae (PCR) Not Detected Parainfluenza 1 (PCR) Not Detected Parainfluenza 2 (PCR) Not Detected Parainfluenza 3 (PCR) Not Detected Parainfluenza 4 (PCR) Not Detected RSV (PCR) Not Detected Entero/Rhino (PCR) Not Detected Diagnostic Findings Chest X-Ray 01/26/25 19:55 Exam(s): XR CXR 1 VIEW EXAM: XR Chest, 1 View CLINICAL HISTORY: Reason for exam: Sepsis. TECHNIQUE: Frontal view of the chest. COMPARISON: Prior chest x-ray from March 19, 2024. FINDINGS: Lungs: Unremarkable. No consolidation. Pleural space: There is blunting the left costophrenic angle. No pneumothorax. Heart: Unremarkable. No cardiomegaly. Mediastinum: Unremarkable. Normal mediastinal contour. Bones/joints: Status post median sternotomy with sternal wires intact. No acute fracture. IMPRESSION: No evidence of acute cardiopulmonary process. Electronically signed by: Lois Jordan MD 01/26/25 22:31 PM Medications Administered Ceftriaxone 2 g IV Fentanyl 50 mcg IV ECG Additional Comments: NSR, RBBB 85 bpm, AL 148, QRS 126, QT/QTc 384/546, PRT 32/-9/61 Code Status & VTE Plan Code Status Full Supervising Physician Co-Signing Physician Notes I personally saw and examined the patient. I independently reviewed the labs, EKG, imaging, problem list, medication list, past medical history and family history. I verified all matthew points and agree with Driss Pepper PA-C with the following exceptions and/or additions: 74 year old presents to the ER with fever following recent back operation. Back pain and leg radiculopathy improved since operation. No respiratory, gastrointestinal or urinary symptoms. O/E HS RRR, no murmurs, Chest CTAB, Abdo SNT, no areas of cellulitis noted, back surgery scar appears clean/dry/intact and healing well A/P Fever of unknown origin - given recent back surgery and immunosuppressed state will continue empiric antibiotics pending blood culture results and repeat temperatures. Procalcitonin is reassuringly negative. PG Care Time/CCT Total # of Minutes Spent Total Time Spent with Patient: Total time spent is greater than 50% in coordination of care (as documented) at patient's floor/unit and/or counseling patient: Coding Level of Care Code 87808 INT INP/OBS CARE MIN Diagnoses Fever R50.9 Anemia D64.9 Heart transplanted Z94.1
--- OUTSIDE RECORDS SUMMARY | 2025-01-27 00:40 | External Medical Summary | Continuity of Care Document ---
Author Name Unknown Organization [facility] Address [address] [place] [address] [phone] Care Team Providers Care Jack Spinner Name Role Phone Uziel Ahmadi Primary Care Physician [phone] [facility]counter [id number] Date(s): 01/20/25 - 01/21/[address] [phone] Encounter Diagnosis Spinal stenosis(Discharge Diagnosis) - 01/20/25 H/O heart transplant(Discharge Diagnosis) - 01/20/25 HTN (hypertension)(Discharge Diagnosis) - 01/20/25 Medication management(Discharge Diagnosis) - 01/20/25 Medication refill(Discharge Diagnosis) - 01/20/25 Drug therapy changed(Discharge Diagnosis) - 01/20/25 Coronary artery disease(Discharge Diagnosis) - 01/20/25 Heart transplanted(Discharge Diagnosis) - 01/20/25 Hyperlipidemia(Discharge Diagnosis) - 01/20/25 Hypertension(Discharge Diagnosis) - 01/20/25 Immunosuppression(Discharge Diagnosis) - 01/20/25 Lumbar radiculopathy(Discharge Diagnosis) - 01/20/25 Discharge Disposition: Home w/ Home Health Care Attending Physician: MD Akins Jesse E Admitting Physician: MD Akins Jesse E Encounter Type: Inpatient Allergies, Adverse Reactions, Alerts No Known Allergies Functional Status 01/21/25 History of Fall in Last 3 Months Guzman Y es Presence of Secondary Diagnosis Guzman Ye s Use of Ambulatory Aid Guzman None/bedrest /nurse assist IV/Heparin Lock Fall Risk Guzman Yes Gait/Transferring Fall Risk Guzman Normal /bedrest/immobile Mental Status Fall Risk Guzman Oriented t o own ability Guzman Fall Risk Score 60 Guzman Fall Risk High risk 01/21/25 Speech Pattern Clear 01/20/25 Level of Consciousness Neuro Sedated 01/20/25 Neurological Symptoms Weakness ADLs Independent Facial Symmetry Symmetric Gait Unable to assess Swallowing Difficulty NPO Hallucinations Present None Immunizations Given and Recorded Vaccine Date Status Refusal Reason influenza virus vaccine, inactivated 08/09/22 Give n influenza virus vaccine, inactivated 07/31/21 Naveen rded influenza virus vaccine, inactivated 07/26/20 Give n influenza virus vaccine, inactivated 08/04/19 Give n influenza virus vaccine, inactivated 07/21/17 Give n influenza virus vaccine, inactivated 07/19/16 Give n influenza virus vaccine, inactivated 05/2015 Naveen rded SARS-CoV-2 (COVID-19) mRNA-1273 vaccine 08/08/21 R ecorded SARS-CoV-2 (COVID-19) mRNA-1273 vaccine 12/07/20 R ecorded SARS-CoV-2 (COVID-19) mRNA-1273 vaccine 11/09/20 R ecorded tetanus/diphtheria/pertuss, acel (Tdap) 05/16/21 R ecorded pneumococcal 23-valent vaccine 07/19/16 Given pneumococcal 13-valent vaccine 07/05/15 Given tetanus toxoids-diphtheria, Td (Adult) 01/13/12 Re corded Medications amLODIPine 5 mg oral tablet Start: 03/17/24 4:53:00 PM EDT, 1 tab, PO, Daily, Disp# 90 tab, Refills: 3, Take 1 tab (5 mg) by mouth daily, Pharmacy: [facility] Start Date: 03/17/24 Stop Date: 03/12/25 Status: Ordered Quantity: 90.0 Unit: tab Repeat number: 4 Indications: Essential (primary) hypertension; Heart transplant status; carbidopa-levodopa 25 mg-100 mg oral tablet Start: 12/02/22 10:15:00 AM EST, 2 tab, PO, bid Start Date: 12/02/22 Status: Ordered Repeat number: 1 fluocinonide 0.05% topical cream Start: 09/05/22 3:38:00 PM EST, 1 appl, topical, bid, Disp# 60 g, Refills: 1, To itchy red spots of eczema BID as needed., Pharmacy: [facility] Start Date: 09/05/22 Status: Ordered Quantity: 60.0 Unit: g Repeat number: 2 gabapentin 300 mg oral capsule Start: 01/03/25 3:52:00 PM EDT, 1 cap, PO, tid, Disp# 90 cap, Refills: 5, Pharmacy: [id number] Start Date: 01/03/25 Stop Date: 07/02/25 Status: Ordered Quantity: 90.0 Unit: cap Repeat number: 6 Indications: Radiculopathy, lumbar region; Keflex 500 mg oral capsule Start: 01/21/25 1:14:00 PM EDT, 1 cap, PO, qid, Disp# 20 cap, Continue until drain removed, Pharmacy: [facility] Start Date: 01/21/25 Stop Date: 01/26/25 Status: Ordered Quantity: 20.0 Unit: cap Repeat number: 1 metoprolol succinate 25 mg oral tablet, extended release Start: 08/23/24 1:11:00 PM EST, 1 tab, PO, qhs, Disp# 90 tab, Refills: 3, Note to Pharmacy: Medicare part B; Date of Transplant: 05/30/2014; Dose: 25 mg daily. *PHARMACY STATES DID NOT RECEIVE E-SCRIPT 08/19, RESENDING 08/23., Pharmacy: [facility] Start Date: 08/23/24 Stop Date: 08/18/25 Status: Ordered Quantity: 90.0 Unit: tab Repeat number: 4 Indications: Encounter for issue of repeat prescription; Heart transplant status; Other manager intermediate (current) drug therapy; mycophenolate mofetil 250 mg oral capsule Start: 11/19/24 10:26:00 AM EST, 1 cap, PO, q12h, Disp# 180 cap, Refills: 3, Note to Pharmacy: Medicare part B; Date of Transplant: 05/30/2014; Dose: 250mg q12hr., Pharmacy: [facility] Start Date: 11/19/24 Status: Ordered Quantity: 180.0 Unit: cap Repeat number: 4 Indications: Heart transplant status; Os-Ron 500 + D Start: 06/19/14 5:56:00 PM EDT, 1 tab, PO, bid Start Date: 06/19/14 Status: Ordered Repeat number: 1 oxyCODONE 5 mg oral tablet Start: 01/20/25 5:20:00 PM EDT, 5 mg =, PO, q4h, Disp# 30 tab, Refills: 0, PRN: pain - moderate (4-6), Pharmacy: [facility] Start Date: 01/20/25 Status: Ordered Quantity: 30.0 Unit: tab Repeat number: 1 rasagiline 1 mg oral tablet Start: 04/21/24 12:35:00 PM EDT, 1 tab, PO, Daily Start Date: 04/21/24 Status: Ordered Repeat number: 1 sirolimus 2 mg oral tablet Start: 12/16/24 10:32:00 AM EDT, 1 tab, PO, Daily, Disp# 90 tab, Refills: 0, Pharmacy: [facility] Start Date: 12/16/24 Status: Ordered Quantity: 90.0 Unit: tab Repeat number: 1 Indications: Heart transplant status; solifenacin 5 mg oral tablet Start: 12/10/23 12:36:00 PM EDT, 1 tab, PO, Daily Start Date: 12/10/23 Status: Ordered Repeat number: 1 tacrolimus (generic) 0.5 mg oral capsule Start: 01/05/25 2:39:00 PM EDT, 3 cap, PO, q12h, Disp# 180 cap, Refills: 1, Take 3 caps (1.5 mg total) by mouth twice a day, Note to Pharmacy: Medicare part B, Date of transplant: 05/30/14. Patient temporarily switching from sirolimus to tacrolimus for upcoming invasive surgery., Pharmacy: [id number] Start Date: 01/05/25 Stop Date: 03/06/25 Status: Ordered Quantity: 180.0 Unit: cap Repeat number: 2 Indications: Other half-way (current) drug therapy; Heart transplant status; Other half-way (current) drug therapy; tamsulosin 0.4 mg oral capsule Start: 04/17/23 3:48:00 PM EDT, 1 cap, PO, bid Start Date: 04/17/23 Status: Ordered Repeat number: 1 valsartan 80 mg oral tablet Start: 12/17/24 12:03:00 PM EDT, 1 tab, PO, Daily, Disp# 90 tab, Refills: 3, Pharmacy: [facility] Start Date: 12/17/24 Status: Ordered Quantity: 90.0 Unit: tab Repeat number: 4 Indications: Essential (primary) hypertension; Hyperlipidemia, unspecified; Heart transplant status; Atherosclerotic heart disease of [place] coronary artery without angina pectoris; Disorder involving the immune mechanism, unspecified; Vitamin C Start: 01/10/25 9:08:00 AM EDT, 500 mg =, PO, Daily Start Date: 01/10/25 Status: Ordered Repeat number: 1 Mental Status 01/20/25 Communication Barrier Present No Primary Language Georgian Problem List Condition Confirmation Course Effective Dates Status Health Status Informant ACTINIC KERATOSIS Confirmed Active SK (solar keratosis) Confirmed Active Xerosis cutis Confirmed Active Benign neoplasm of colon Confirmed 02/18/07 Active Multiple nevi Confirmed Active Changing skin lesion Confirmed Active Chronic systolic heart failure 1 Confirmed 05/26/13 Active Coronary artery disease 2 Confirmed 05/26/13 Active Cough Confirmed Active Eczema Confirmed Active Epidermal cyst Confirmed Active Heart transplanted 3 Confirmed 05/30/14 Active Encounter for follow-up examination after completed treatment for cancer Confirmed Active Hx of skin malignancy Confirmed Active Hyperlipidemia Confirmed 2011 Active Hypertension Confirmed 1999 Active Immunosuppression 4 Confirmed 05/30/14 Active 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 2Acute anterior-lateral STEMI, late presentation, 12 hours; Cath, 05/26/13: pLAD 100%, PCI VF with wire, shock x7, thrombectomy, BMS 3x15; mLAD 30-40%, Circ irregs, RCA 20%; EDP 38-40; EF 20%. 3Bi-Caval anastomosis. 4Due to orthotopic heart transplant. 5WOUND old LVAD driveline site incision 1+ KLEBSIELLA PNEUMONIAE (ESBL) Carbapenemase positive: "This isolate demonstrates carbapenemase production."Wound.Cx June 27, 2014 09:56 609 Wound Culture old LVAD driveline site incision 1+Klebsiella pneumoniae (ESBL) Carbapenemase positive: "This isolate demonstrates carbapenemase production." 7Heartware LVAD, explant ECMO; Bridge to transplant. Diagnosis Diagnosis Type Effective Dates Health Status Clinical Service Informant H/O heart transplant Discharge Diagnosis 01/20/25 Non-Specified HTN (hypertension) Discharge Diagnosis 01/20/25 Non-Specified Medication refill Discharge Diagnosis 01/20/25 Non-Specified Drug therapy changed Discharge Diagnosis 01/20/25 Non-Specified Lumbar radiculopathy Discharge Diagnosis 01/20/25 Non-Specified Medication management Discharge Diagnosis 01/20/25 Non-Specified Hyperlipidemia Discharge Diagnosis 01/20/25 Non-Specified Hypertension Discharge Diagnosis 01/20/25 Non-Specified Coronary artery disease Discharge Diagnosis 01/20/25 Non-Specified Heart transplanted Discharge Diagnosis 01/20/25 Non-Specified Immunosuppression Discharge Diagnosis 01/20/25 Non-Specified Spinal stenosis Discharge Diagnosis 01/20/25 Non-Specified Procedures Procedure Date Related Diagnosis Body Site Status Biopsy of heart 04/2023 Completed Shave biopsy and cauterization of skin 09/05/22 Completed Shave biopsy and cauterizati on of skin 1 06/12/22 Completed Shave biopsy and cauterization of skin 02/27/22 Completed Shave biopsy 2 07/26/21 Completed Shave biopsy and cauterization of skin 11/15/20 Completed Punch biopsy 04/24/20 Completed Mohs surgery 3 11/10/19 Completed Shave biopsy and cauterisation of skin 10/20/19 Completed Fit crown to tooth 08/2019 Comple donna Excision biopsy 4 04/21/19 Complet ed Mohs micrographic surgery 10/14/18 Completed Shave biopsy and cauterisati on of skin 5 08/19/18 Completed Shave biopsy and cauterisati on of skin 6 08/19/18 Completed Punch biopsy of skin 07/08/18 Comp leted Shave biopsy and cauterizati on of skin 7 03/16/18 Completed Shave biopsy 8 09/16/17 Completed Electrodesiccation with curettage 9 04/28/17 Completed Shave biopsy and cauterizati on of skin 10 03/19/17 Completed Hip X-ray 11 02/23/17 Completed X-RAY EXAM ENTIRE SPI 01/01 VW 12 02/23/17 Completed Ankle X-ray right 13 09/18/16 Comp leted Shave biopsy and cauterization of skin 08/21/16 Completed Ankle X-ray right 14 08/07/16 Comp leted Ankle X-ray 15 07/31/16 Completed Ankle X-ray 16 07/25/16 Completed Fibula X-ray 17 07/25/16 Completed Shave biopsy and cauterization of skin 08/17/15 Completed Procedure 18 11/14/14 Completed Heart transplant 19 05/30/14 Compl eted Picc line insertion, L upper arm 02/20/14 Completed Left ventricular assist [place] ce, Heartware 20 06/03/13 Completed cardiac catheterization and PCI 21 05/26/13 Completed colonoscopy 02/18/072011 Co mpleted Tonsillectomy 1952 Completed Biopsy 23 Completed Excision squamous cell cance r left cheek Completed Mohs micrographic surgery Completed Procedure 24 Completed stress echo 04/20/13 Compl eted 1ED&C 2chin 3SCC Left Sup [place] SCC Right Pre-auricular 4A- right antihelix B- right chin 5left superior helix 6left cheek 7A- left nasal sidewall B-Right chin 8A- left thigh B- left tagus ear 9left lower calf 10left calf 11Mild right hip osteoarthritis. No fracture or dislocation. 121. No fracture or subluxation within the lumbar spine. 2. Mild to moderate degenerative changes as described above. 3. Partial fusion of the right sacroiliac joint. 13Impression: Partial healing of an oblique fracture distal fibula 14Impression: No change in alignment of the oblique/spiral nondisplaced fracture of the distal fibula. No definite callus formation is yet evident. 15Impression: Unchanged appearance of a spiral fracture through the distal fibula as compared to 07/25/2016. 16Minimally displaced obliqui distal right fibular fracture No ankle mortise widening 17Nondisplaced oblique fracture of the distal fibula 18biopsy of the heart 19Bi-Caval anastomosis; HeartWare LVAD explant. 20In OR oozing from anterior wall noted, suggesting impending LV rupture; Heartware LVAD as BTT; ECMOexplant. 21Cath, 05/26/13: pLAD 100%, PCI VF with wire, shock x7, thrombectomy, BMS 3x15; mLAD 30-40%, Circ irregs, RCA 20%; EDP 38-40; EF 20%. [id number] and 2011 23heart 24EGD Results Laboratory List Name Date Complete Blood Count (CBC w Platelets) Comprehensive Metabolic Panel (CMP) 01/21 Vitamin D, 25-Hydroxy Level, Total Blood Type (ABO/Rh) 01/20/25 Blood Type/Antibody Screen ( for possible transfusion) (Type and Screen (for possible transfusion)) 01/20/25 Most recent to oldest [Reference Range]: 1 2 ABO/Rh B POSITIVE (01/20/25 9:59 AM) B POSITIVE (01/20/25 9:54 AM) Antibody Scr NEGATIVE (01/20/25 9:54 AM) Expires at 0600AM on 01/23/2025,0600 (01/20/25 9:54 AM) # Units 0 (01/20/25 9:54 AM) R Number NRQ (01/20/25 9:54 AM) eGFR CKD-EPI [>60 mL/min/1.73 m2] 33 mL/ min/1.73 m2 *LOW* (01/21/25 6:53 AM) Vitamin D, 25-Hydroxy [30-100 ng/mL] 41 ng/mL 1 (01/21/25 6:53 AM) Estimated CrCl 34.70 mL/min (01/21/25 6:53 AM) MPV [9.0-12.2 fL] 9.6 fL (01/21/25 6:53 AM) RDW [11.5-14.2 %] 12.9 % (01/21/25 6:53 AM) Component RED CELLS (01/20/25 9:54 AM) Anion Gap [5-14 mmol/L] 14 mmol/L (01/21/25 6:53 AM) Alb [3.5-5.2 g/dL] 3.9 g/dL (01/21/25 6:53 AM) Alk Phos [40-130 unit/L] 65 unit/L 2 (01/21/25 6:53 AM) ALT [0-41 unit/L] 5 unit/L (01/21/25 6:53 AM) AST [0-40 unit/L] 20 unit/L (01/21/25 6:53 AM) BUN [6-23 mg/dL] 39 mg/dL *HI* (01/21/25 6:53 AM) Ca [8.4-10.2 mg/dL] 9.7 mg/dL (01/21/25 6:53 AM) Cl- [98-107 mmol/L] 105 mmol/L (01/21/25 6:53 AM) HCO3 [22-29 mmol/L] 22 mmol/L (01/21/25 6:53 AM) Cret [0.70-1.30 mg/dL] 2.04 mg/dL *HI* (01/21/25 6:53 AM) Glu [74-109 mg/dL] 127 mg/dL 3 *HI* (01/21/25 6:53 AM) Hct [39-48 %] 34.9 % *LOW* (01/21/25 6:53 AM) Hgb [13.0-17.0 g/dL] 11.8 g/dL *LOW* (01/21/25 6:53 AM) K [3.5-5.1 mmol/L] 5.2 mmol/L *HI* (01/21/25 6:53 AM) MCH [28-33 pg] 29.1 pg (01/21/25 6:53 AM) MCHC [32-36 g/dL] 33.8 g/dL (01/21/25 6:53 AM) MCV [81-96 fL] 86.2 fL (01/21/25 6:53 AM) Na [136-145 mmol/L] 141 mmol/L (01/21/25 6:53 AM) Plts [150-350 K/uL] 139 K/uL *LOW* (01/21/25 6:53 AM) RBC [4.40-5.60 M/uL] 4.05 M/uL *LOW* (01/21/25 6:53 AM) T Bili [0.0-1.2 mg/dL] 0.4 mg/dL (01/21/25 6:53 AM) Prot [6.4-8.3 g/dL] 6.3 g/dL *LOW* (01/21/25 6:53 AM) WBC [4.0-10.4 K/uL] 8.69 K/uL (01/21/25 6:53 AM) 1Result Comment: Deficiency: <20 ng/mL Insufficiency: 21-29 ng/mL Sufficiency: 30-100 ng/mL Potenial Toxicity: >150 ng/mL 2Result Comment: Low levels of ALKP may indicate a deficiency in zinc, magnesium, or malnutritionbutcan also be an indicator of a rare genetic disease hypophosphatasia (HPP). 3Result Comment: ADA recommendation for FASTING Serum/Plasma Glucose: Normal: 70-100 mg/dL Prediabetes: 100-125 mg/dL Diabetes: 126 mg/dL or higher Vital Signs Most recent to oldest [Reference Range]: 1 2 3 Height 175.26 cm (01/20/25 9:22 AM) Patient Weight 90 kg (01/20/25 9:22 AM) Body Mass Index 29.3 kg/m2 (01/20/25 9:22 AM) Temperature [36.5-37.9 DegC] 36.9 DegC (01/21/25 11:09 AM) 36.6 DegC (01/21/25 10:52 AM) 36.9 DegC (01/21/25:22 AM) Heart Rate 80 bpm (01/21/25 11:09 AM) 84 bpm (01/21/25 9:22 AM) 80 bpm (01/21/25 4:28 AM) Respiratory Rate 20 br/min (01/21/25 11:09 AM) 16 br/min (01/21/25 9:22 AM) 18 br/min (01/21/25 4:28 AM) Blood Pressure 118/72mmHg (01/21/25 11:09 AM) 133/80mmHg (01/21/25 9:22 AM) 138/84mmHg (01/21/25 4:28 AM) Mean Blood Pressure 91 mmHg (01/21/25 11:09 AM) 99 mmHg (01/21/25:22 AM) 101 mmHg (01/21/25 4:28 AM) Cuff Pulse Pressure 46 mmHg (01/21/25 11:09 AM) 53 mmHg (01/21/25 9:22 AM) 49 mmHg (01/20/25 9:15 PM) BP Location # 1 Left Arm (01/21/25 11:09 AM) Right Arm (4/25/25 9:22 AM) Left Arm (01/21/25 4:28 AM) Social History Social History Type Response Smoking Status Never smoked cigaret elizabeth Sex Male Sex Representation Male (finding) Implantable Device List Procedure Provider Procedure Date Device Type Site Unknown Unknown 01/20/25 Unknown Unknown Device Identifier Serial Number Lot or Batch Number Manufacturing Date Expiration Date Distinct Identification Code MRI Safety Implantable Status Assigning Authority Unknown Unknown [id number] Unknown 03/29/29 Unknown Unknown Active Unknown Unknown Unknown [id number] Unknown 04/05/29 Unknown Unknown Active Unknown Unknown Unknown [id number] Unknown 10/13/27 Unknown Unknown Active Unknown Unknown Unknown n/a Unknown Unknown Unknown Unknown Active Unkn own Unknown Unknown n/a Unknown Unknown Unknown Unknown Active Unkn own Unknown Unknown n/a Unknown Unknown Unknown Unknown Active Unkn own Unknown Unknown n/a Unknown Unknown Unknown Unknown Active Unkn own Unknown Unknown n/a Unknown Unknown Unknown Unknown Active Unkn own Discharge instructions * MD Sanju, Shy Man: MODIFY MD Bills Kirstin A: MODIFY SABIHA Lyles, Samira: MODIFY Event Display: Patient Discharge Instructions Authored Date: [id number] MAMIE FELIPE :1950 Visit Date:01/20/2025 Patient Discharge Instructions [facility] For medical concerns, call: . Date of Admission: 01/20/2025 Date of Discharge: 01/21/2025 Physician: MD Akins Jesse E Service: Orthopaedics Discharge Disposition: home . Advance Directive: Living will, Health Care Power of Barrel Tester And Drainer Reason for Hospitalization Lumbar radiculopathy Your Diagnoses Lumbar radiculopathy Coronary artery disease Drug therapy changed H/O heart transplant HTN (hypertension) Heart transplanted Hyperlipidemia Hypertension Immunosuppression Medication management Medication refill Spinal stenosis My Health Patient Portal: [employer] makes it easy for you to manage your health information online. My [employer] is a free service that provides you instant, secure access to your medical information anytime, anywhere. Sign in or set up your account today at [email or web address] Thank you for allowing us to assist you with your healthcare needs. If you need additional community resources, DAVIE Randall can help at [email or web address]. 211 can assist you in connecting with social programs based on your unique needs and locations. 211 is an anonymous search that can help you locate resources for: Food, Housing, Transportation, Goods, Education and Healthcare. Medications What How Much When Why Instructions Next Dose New cephalexin (Keflex 500 mg oral capsule) 1 cap by mouth 4 times daily Duration: 5 Days Continue until drain removed Pickup at [facility] New oxyCODONE (oxyCODONE 5 mg oral tablet) 5 Milligram by mouth Every 4 hours as needed for pain - moderate (4-6) Pickup at [facility] Unchanged amLODIPine (amLODIPine 5 mg oral tablet) 1 tab(s) by mouth Once daily H/O heart transplant HTN (hypertension) Duration: 90 Days Take 1 tab (5 mg) by mouth daily 01/21/25 9:00pm Unchanged ascorbic acid (Vitamin C) 500 Milligram by mouth Once daily 01/22/25 9:00am Unchanged calcium and vitamin D combination (Os-Ron 500 + D) 1 tab(s) by mouth 2 times daily 01/21/25 9:00pm Unchanged carbidopa-levodopa (carbidopa-levodopa 25 mg-100 mg oral tablet) 2 tab(s) by mouth 2 times daily 01/21/25 9:00pm Unchanged fluocinonide topical (fluocinonide 0.05% topical cream) 1 ernie topically 2 times daily To itchy red spots of eczema BID as needed. Not given at [facility] Unchanged gabapentin (gabapentin 300 mg oral capsule) 1 cap by mouth 3 times daily Lumbar radiculopathy Duration: 30 Days 01/21/25 9:00pm Unchanged metoprolol (metoprolol succinate 25 mg oral tablet, extended release) 1 tab(s) by mouth At bedtime H/O heart transplant Medication management Medication refill Duration: 90 Days 01/21/25 10:00pm Unchanged mycophenolate mofetil (mycophenolate mofetil 250 mg oral capsule) 1 cap by mouth Every 12 hours H/O heart transplant 01/21/25 7:00pm Unchanged rasagiline (rasagiline 1 mg oral tablet) 1 tab(s) by mouth Once daily Not given at [facility] Unchanged sirolimus (sirolimus 2 mg oral tablet) 1 tab(s) by mouth Once daily H/O heart transplant Not given at [facility] Unchanged solifenacin (solifenacin 5 mg oral tablet) 1 tab(s) by mouth Once daily Not given at [facility] Unchanged tacrolimus (tacrolimus (generic) 0.5 mg oral capsule) 3 cap by mouth Every 12 hours H/O heart transplant Medication management Drug therapy changed Duration: 30 Days Take 3 caps (1.5 mg total) by mouth twice a day 01/21/25 7:00pm Unchanged tamsulosin (tamsulosin 0.4 mg oral capsule) 1 cap by mouth 2 times daily 9:00pm Unchanged valsartan (valsartan 80 mg oral tablet) 1 tab(s) by mouth Once daily Coronary artery disease Heart transplanted Hyperlipidemia Hypertension Immunosuppression 01/22/25 9:00am Pharmacy Information [facility]: [address] [place] [address] DAVIE German [phone] Allergies NKA What to do next Instructions From Your Doctor Date of Service: 01/20/2025 Surgeon: Mynor Akins MD OPERATION PERFORMED: L1-L5 lumbar laminectomy, ,L2-L5 PSIF, autograft, allograft Lumbar Spine Care Instructions: - Do not change your dressing until your drain is removed. - After your drain is removed, change your dressing daily with dry 4x4 gauze. After you take the dressing off and there is no drainage from the incision, you may shower the following day. Do NOT submerge wound into whirlpool, bath, or pool. - You have in your incision. Allow the steri-strips to fall off on their own. - No driving while taking narcotic pain medication. - Constipation is common with the use of narcotic pain medication. You should use an over the counter stool softener of your choice while taking narcotic pain medication (ie: Colace, Senna, Miralax). - Please return to your pre-hospital medications unless directed otherwise. - Do not smoke or use products that contain nicotine. - Activity, especially walking around your home, is encouraged. - No special exercises are necessary for the first 6 weeks post-op. - Do NOT do heavy housework, such as bed-making, vacuuming or laundry for the first 6 weeks after surgery. - NO bending, lifting, twisting, pulling or pushing greater than 10 pounds for the first 6 weeks after surgery. - Also, please start taking an over the counter calcium supplement with vitamin D twice a day, any brand is fine. Lumbar Spine Activity Guidelines: 1. Use log rolling technique when getting out of bed. 2. Ambulate as tolerated; moving around helps reduce the risk of blood clots in the legs (DVT) thatmight travel to the lungs (PE). You are encouraged to walk at least 150 feet per day. Use your rolling walker if advised by Physical Therapy. 3. Take your time up and down the steps slowly, one step at a time - holding onto the rail with both hands. Someone supervise you on the steps for now. 4. No lifting more than 10 lbs, twisting, or bending motion You have been prescribed the followin. oxycodone 5 mg 1-2 tablets every 4-6 hrs as needed for pain 2. gabapentin 300 mg one tablet up to 3 times a day, or take your Gabapentin as previously prescribed above 3. flexeril 5mg one tablet 3 times a day as needed for muscle spasms 4. Keflex 500 mg 1 tab by mouth 4 times a day until drain removed Also, please start taking a calcium supplement with vitamin D twice a day, any brand is fine. Lumbar Instructions Explained 1. Pain Control: Use the prescribed pain medication over the first 48 hours after surgery, then you can begin to taper your use. DO NOT TAKE MORE THAN THE PRESCRIBED DOSE. It is not uncommon for patients to encounter more pain on the first or second day after surgery. This is the time when swelling peaks. Taking pain medication before bedtime will assist in sleeping. It is important not to drink alcohol or drive while taking narcotic medication. You have been prescribed the following pain medication: See checkmarks ( X ) Oxycodone 5mg, 1-2 tabs every 4-6 hours as needed for pain ( ) [place] (Hydrocodone/Tylenol) 5/325mg, 1-2 tabs every 4-6 hours as needed for pain ( X ) Flexeril (Cyclobenzaprine) every 8-12hours as needed for muscle spasms ( X ) Neurontin (Gabapentin) as prescribed ( X ) You should also take Extra Strength Tylenol (Two 500 mg tablets – 1000 mg total) three times a day (every 8 hours) in addition to your prescribed medication. Do not exceed 3,000mg of Tylenol a day (risk of liver damage). Do not take Tylenol if you have a history of liver problems. ( ) Nonsteroidal anti-inflammatory medications including Ibuprofen or Aleve can be taken as directed over the counter to supplement other pain medications. ( ) The pain medication that you have been prescribed contains Tylenol. You may not take any Tylenol in addition to your prescribed pills, but you can take Tylenol in place of your prescribed medication when tapering from narcotics. Do not exceed more than 3,000mg of Tylenol from all sources in 24 hours. Remember to continue Tylenol as you wean from your narcotics. After your recovery, please properly dispose of all remaining narcotic pain medications. 2. You need antibiotics at home after your surgery until drain is removed. [place] Drain Care: - Please empty your drain every 8 hours and keep a journal of the time the drain is emptied and theamount of fluid drained. - bring the drain journal with you to your post op visit. - How to empty DERRICK drain: 1. Milk the drain tubing as shown 2. Wash your hands with soap and water. 3. Remove the plug from the bulb. 4. Pour the fluid into a measuring cup. 5. Clean the plug with an alcohol swab. 6. Squeeze the bulb flat and put the plug back. Your drain will be removed by the home health nurse on Friday01/24/2025. Once the drain is removed please change the dressing daily. 3. Please initiate the following over the counter supplements: ( X ) Calcium 1000mg daily ( X ) Vitamin D2 or D3 1000 IU daily -- Any brand is fine may be obtained over the counter at any pharmacy or store. 4. Constipation: Narcotic pain medication will cause constipation. Adequate hydration and overthe counter stool softeners such as Colace should be used to minimize constipation. Take Colace 50-100mg twice a daily until you are done taking pain medication or you have normal bowel patterns. Eat a diet with lots of fruits, vegetables, and fiber. If you have not had a bowel movement by post-operative day 3, please try Miralax, Senna, or Milk of Magnesia per bottle instructions. 5. If chest pain or shortness of breath occurs, proceed to the closest emergency department. Should severe calf pain occur or significant swelling of calf and ankle, please call the office during business hours or contact on-call resident through the hospital casting wheel operator helper [phone]. 6. Wound care: Do Not change the dressing until drain is removed. Once drain removed have a caregiver change the dressing daily until there is no more drainage. Once the drainage stops, the incision may be left open to air and you may shower. Pat the incision dry. Allow the Steri strips to falloff on their own. If they haven’t fallen off in 10 days, you may pull them off. No soaking in tub, hot tub, or pool. If your incision becomes red, hot, painful to touch, or has any significant discharge, please call the office immediately. 7. Any unexplained pain, swelling, redness, cloudy drainage, bleeding, wound separation, or fever should be reported immediately. Certain amounts of redness around incision or clear red or pink drainage is common after surgery; however, any concerning findings should be brought to our attention. Low grade temperature, usually less than 101.6°F, is common up to 5 days after surgery. If your temperature is higher than this over a 24-hour period, call our office @ [phone]. If after hours, call [phone] and ask for the Orthopaedic resident to be paged. 8. Activity: It is important to be up moving around safely in your home every 1-2 hours as tolerated, and with assistance if needed. Frequent walking will prevent blood clots and pneumonia and will help you get stronger after surgery. No lifting > 10 pounds; no twisting, pushing, or pulling, or repetitive bending motions for a total of 6 weeks after surgery. 9. Driving: Do not drive while you are taking any narcotic pain medication after surgery. 10. Your first appointment after surgery: Is likely already scheduled for 2-3 weeks after surgery. If not, please call [phone] to set up your appointment 11. Any question or problems can be taken care of 24 hours a day, 7 days a week. During business hours M-F 8-4:30, call [phone] BORDERER with questions or concerns. After hours, a covering physician can address issues by calling the hospital casting wheel operator helper [phone] and asking for the Orthopaedic resident eviction specialist to be paged. SMOKING is a major health concern! Smoking greatly increases the risk of heart disease, cancer andstroke. - If you and your family don't smoke, continue this healthy choice! Remember to avoid secondhand smoke. - If you or anyone in your household does use tobacco products, please follow any smoking cessationadvice/counseling you received while in the hospital. If you would like more information about how to live tobacco free, please call the numbers or access the websites below: » [facility] Care Line: » [place] Free QUITLINE: 5-253-ScqeFox ( ) » http://1800quitnow.cancer.gov » http://www.[employer].Going My Way You were offered a Hepatitis C screening test and you declined. Please follow up with your PCP. If you notice the following symptoms Call your doctor with questions regarding your Orthopaedic injuries - Call with any questions concerning fevers > 101°F, chills, redness, increased swelling, numbness, tingling, drainage or pus from your incisions or if you have any questions please phone our office. - Friday – Friday 8am-4:30pm Call - Evenings or Weekends call the hospital casting wheel operator helper and ask for the Orthopaedic resident eviction specialist to be paged If you experience chest pain or shortness of breath phone 911 and report to the closest emergency room as this could be a sign of a heart attack or a blood clot to the lungs (pulmonary embolism). If you were prescribed an antibiotic or a blood thinner (such as Lovenox, Xarelto, or Eliquis) and you were unable to fill the prescription after discharge please phone our office so we can advise you on either a different medication or assist you to obtain a prescription - Questions regarding medication refills should be phoned into the office during normal business hours. We request 72 hours notification on need to refill medications. The eviction specialist resident staff willnot fill medications during the evening or weekend hours. Other questions regarding: Nerve catheter should be directed to the Acute Pain management service. and ask for the Acute Pain Resident at pager [phone] - Questions regarding FMLA, disability, school/work notes should be phoned into our office [phone] our fax number is [phone]. Contact the [facility] Careline at . If unable to contact your physician and you feel it is an emergency, go to the nearest Emergency Room or call 911 Diet Instructions DIET Resume a healthy diet at home to encourage healing. Stay well hydrated by drinking plenty of water or drinks that contain electrolytes/vitamins. Activity Instructions It is important to be up moving around safely in your home every 1-2 hours as tolerated, and withassistance if needed. Frequent walking will prevent blood clots and pneumonia and will help you get stronger after surgery. No lifting > 10 pounds; no twisting, pushing, or pulling, or repetitive bending motions for a total of 6 weeks after surgery. Follow-Up Appointments Scheduled Follow-Up Appointments Date/Time: Provider/Resource: January 02:30 pm PATRICIA Martinez, Bonita Matias Location/Instructions: [facility] - Specialties, Entrance A, [address] [place] [address], [place] [address]. This appointment time has been reserved for your appointment. If you need to cancel or reschedule your visit call . Please arrive 15 minutesearlier than your appointment for check in process. Date/Time: Provider/Resource: Mar 11:15 am Radiology EC Location/Instructions: [facility], [address], Entr[address], [address], [place] [address] Date/Time: Provider/Resource: Mar 11:45 am MD Akins Jesse E Location/Instructions: [facility], [address], Entr[address], [address], [place] [address] The Following Services Have Been Arranged for You No Post-Acute Placement(s) Listed No Post-Acute Service(s) Listed Tests Pending Vitamin D, 25-Hydroxy Level, Total To obtain results pending at hospital discharge, call and ask for the following Physician: MD Akins Jesse E Procedures Performed Date of Service: 01/20/2025 Surgeon: Mynor Akins MD OPERATION PERFORMED: L1-L5 lumbar laminectomy, ,L2-L5 PSIF, autograft, allograft Special Instructions Common Emergency Awareness Tips Call 911 immediately if: experiencing any of the warning signs and symptoms of stroke: B.E. F.A.S.T. Balance: is there trouble with walking or coordination Eyes: is there double vision or visual loss Face: Smile, do both sides of face move equally Arm: Raise arms, do both arms move equally Speech: Is speech slurred or inappropriate Time: Time is critical, call 911 immediately Heart Attack Signs Chest discomfort: Most heart attacks involve discomfort in the center of the chest and lasts more than a few minutes, or goes away and comes back. It can feel like uncomfortable pressure, squeezing, fullness or pain. Discomfort in upper body: Symptoms can include pain or discomfort in one or both arms, back, neck, jaw or stomach. Shortness of breath: With or without discomfort. Other signs: Breaking out in a cold sweat, nausea, or lightheaded. Remember, MINUTES DO MATTER. If you experience any of these heart attack warning signs, call to get immediate medical attention! Note * MAGALI Merchant Kelly A: PERFORM, MODIFY, MODIFY Event Display: Brief Operative Note Authored Date: [id number] BRIEF OPERATIVE NOTE Name: MAMIE FELIPE Patient Number: [id number] : 1950 Date of Service: 01/20/2025 Pre-op Diagnosis: _ Multilevel lumbar stenosis with neurogenic claudication Post-op Diagnosis: _ Multilevel lumbar stenosis with neurogenic claudication Procedure: _ L1-L5 lumbar laminectomy, ,L2-L5 PSIF, autograft, allograft Surgeon: Dr. Akins Assistants: Nat Merchant [facility] Anesthesia: GETA Estimated Blood Loss: _ 100 _ Less than 50ml Drains: _JP sewn x_1 Fluids: _ See anesthesia record Urinary Output: _See anesthesia record, Mohr intra op Condition: Extubated in OR. Stable to PACU_ Complications: None Specimen: _ _ x None Findings: _ lumbar stenosis Check one _ Pharmacologic VTE prophylaxis not indicated _ Standard VTE prophylactic regimen ordered x _ Pharmacologic VTE prophylaxis contraindicated due to increased risk of intraoperative and / or postoperative bleeding Check one _ No antibiotics indicated x _ Standard prophylactic antibiotic regimen ordered _ Antibiotic regimen changed due to concern for infection Assessment: _ yo _ s/p _ Plan: - Weight bearing: WBAT - Other: - _HOB restriction:None - _No MAP goals - DVT PPX: Contraindicated due to spine procedure and risk of epidural hematoma - Diet: Advance diet as tolerated,Adult regular diet - Activity: OOB with ambulation as tolerated - Bracing: None - PT/OT: Consulted - Pain control: Tylenol, Flexeril, and Gabapentin; Oxy 5/10’s; _ - Antibiotics: Jaimie-Op abx ordered. Drains in until abx discontinued - Drains: _JPx_ 1 sewn - Labs: AM CBC and AM BMP, AM Vit D level - Home meds: Restarted as appropriate - Additional meds: 50,000 IU ergocalciferol once; Ca-Vit D POD 2 - Imaging: Post Op XR’s not necessary - Bowels: Bowel regimen given - : _foley d/c'd at end of case, DTV - Dispo: OPER; pending void, drain removal, PT/OT TT Ortho Spine with questions. Electronic Signature on File Electronically Reviewed/Signed by: MAGALI Vela Author Signature Dt/Tm:01/20/2025 05:12 PM Division of Orthopaedics Electronically Reviewed/Signed by: Mynor Akins MD Cosigner Signature Dt/Tm: 01/21/2025 08:57 AM Division of Orthopaedics [facility] Patient Care team information Care Team Personnel Name: Bonita Ritchie Francis Position: Pharmacist Schedule II Member Role: Pharmacy - Lifetime Address: [facility] [address] [place] [address] Name: MAGALI Clark Kathleen R Position: Nurse Pract - Card Intv Cardiology Member Role: Lifetime Relationship Address: [address] [place] [address] [address] [place] [address] Telecom: [phone] Name: Bonita Roy Paul T Position: Pharmacist Schedule II Member Role: Pharmacy - Lifetime Address: [facility] [address] [place] [address] [place] Name: MAGALI Geronimo Angela M Position: Nurse Pract - Card Crit Care Member Role: Lifetime Relationship Address: [address] Telecom: [phone] Name: MD Ahmadi Michael P Position: Physician - Internal Med Member Role: Primary Care Provider Address: [address] [place] [address] [place] Telecom: [phone] Name: MAGALI Caruso Thomas Position: Nurse Pract - Heart Failure Member Role: Lifetime Relationship Address: [address] [facility] [address] [place] [address] [place] Telecom: [phone] Name: Bonita Pastor Shailja Position: Pharmacist Member Role: Pharmacy - Lifetime Address: [facility] [address] Name: MD Hart Behzad Position: Physician - CT Surgery Member Role: Lifetime Relationship Address: [address] [facility] [address] Telecom: [phone] Care Team Related Persons Name: WILMER FELIPE Name: CESAR FELIPE Insurance Providers Guarantor name: MAMIE FELIPE Health Plan Information #: 3 Payer: [employer] Member Number: [id number] Policy Number: NA Group Number: NA Payer Identifier: [id number] Health Plan Information #: 2 Payer: MEDICARE Member Number: [id number] Policy Number: NA Group Number: NA Payer Identifier: [id number] Health Plan Information #: 1 Payer: [facility] Member Number: [id number] Policy Number: NA Group Number: NA Payer Identifier: NA
--- OUTSIDE RECORDS SUMMARY | 2025-01-27 00:40 | External Medical Summary | Continuity of Care Document ---
Author Name Unknown Organization [facility] [address] DAV[place] CANO [id number] Care Team Providers Care Material Controller Name Role Phone GaldinoUziel Primary Care Physician [phone] [id number] Date(s): 01/10/25 - 01/10/25 [facility] [address] [facility] An[facility] Preop, Pulmonary and Dental [address], [address]tr[address], [address] [place] [address] Encounter Diagnosis Body mass index [BMI] 29.0-29.9, adult(Discharge Diagnosis) - 01/10/25 Pre-op exam(Discharge Diagnosis) - 01/10/25 Discharge Disposition: Home or Self Care Attending Physician: MAGALI Yang Charlynn J Referring Physician: MD Akins Jesse E Encounter Type: [facility] Allergies, Adverse Reactions, Alerts No Known Allergies Immunizations Given and Recorded Vaccine Date Status [...] tab (5 mg) by mouth daily, Pharmacy: [facility] Start Date: 03/17/24 Stop Date: 03/12/25 [...] spots of eczema BID as needed., Pharmacy: [facility] Start Date: 09/05/22 Status: Ordered Quantity: 60.0 Unit: g Repeat number: 2 gabapentin 300 mg oral capsule Start: 01/03/25 3:52:00 PM EDT, 1 cap, PO, tid, Disp# 90 cap, Refills: 5, Pharmacy: [id number] Start Date: 01/03/25 Stop Date: 07/02/25 Status: Ordered Quantity: 90.0 Unit: cap Repeat number: 6 Indications: Radiculopathy, lumbar region; metoprolol succinate 25 mg oral tablet, extended release Start: 08/23/24 1:11:00 PM EST, 1 tab, PO, qhs, Disp# 90 tab, Refills: 3, Note to Pharmacy: Medicare part B; Date of Transplant: 05/30/2014; Dose: 25 mg daily. *PHARMACY STATES DID NOT RECEIVE E-SCRIPT 08/19, RESENDING 08/23., Pharmacy: [facility] Start Date: 08/23/24 Stop Date: 08/18/25 Status: Ordered Quantity: 90.0 Unit: tab Repeat number: 4 Indications: Encounter for issue of repeat prescription; Heart transplant status; Other detention (current) drug therapy; mycophenolate mofetil 250 mg oral capsule Start: 11/19/24 10:26:00 AM EST, 1 cap, PO, q12h, Disp# 180 cap, Refills: 3, Note to Pharmacy: Medicare part B; Date of Transplant: 05/30/2014; Dose: 250mg q12hr., Pharmacy: [facility] Start Date: 11/19/24 Status: Ordered Quantity: 180.0 Unit: cap Repeat number: 4 Indications: Heart transplant status; Os-Ron 500 + D Start: 06/19/14 5:56:00 PM EDT, 1 tab, PO, bid Start Date: 06/19/14 Status: Ordered Repeat number: 1 rasagiline 1 mg oral tablet Start: 04/21/24 12:35:00 PM EDT, 1 tab, PO, Daily Start Date: 04/21/24 Status: Ordered Repeat number: 1 sirolimus 2 mg oral tablet Start: 12/16/24 10:32:00 AM EDT, 1 tab, PO, Daily, Disp# 90 tab, Refills: 0, Pharmacy: [facility] Start Date: 12/16/24 Status: Ordered Quantity: [...] to tacrolimus for upcoming invasive surgery., Pharmacy: [id number] Start Date: 01/05/25 Stop Date: 03/06/25 Status: Ordered Quantity: 180.0 Unit: cap Repeat number: 2 Indications: Other detention (current) drug therapy; Heart transplant status; Other detention (current) drug therapy; tamsulosin 0.4 mg oral capsule Start: 04/17/23 3:48:00 PM EDT, 1 cap, PO, bid Start Date: 04/17/23 Status: Ordered Repeat number: 1 valsartan 80 mg oral tablet Start: 12/17/24 12:03:00 PM EDT, 1 tab, PO, Daily, Disp# 90 tab, Refills: 3, Pharmacy: [facility] Start Date: 12/17/24 Status: Ordered Quantity: 90.0 Unit: tab Repeat number: 4 Indications: Essential (primary) hypertension; Hyperlipidemia, unspecified; Heart transplant status; Atherosclerotic heart disease of k[place] coronary artery without angina pectoris; Disorder involving the immune mechanism, unspecified; Vitamin C Start: 01/10/25 9:08:00 AM EDT, 500 mg =, PO, Daily Start Date: 01/10/25 Status: Ordered Repeat number: 1 Mental Status 01/10/25 Barriers to Learning one year Vision imp airment, Other: wear glasses Mandatory Health Literacy Documentation Yes Health Literacy Communication Barriers N ever Primary Language Yemeni Problem List Condition Confirmation Course Effective Dates [...] Diagnosis Diagnosis Type Effective Dates Health Status Cl inical Service Informant Body mass index [BMI] 29.0-29.9, adult Discharge Diagnosis 01/10/25 Non-Specified Pre-op exam Discharge Diagnosis 01/10/25 Procedures Procedure Date Related Diagnosis Body Site [...] Compl eted 1ED&C 2chin 3SCC Left Sup Castaic SCC Right Pre-auricular 4A- right antihelix B- [...] irregs, RCA 20%; EDP 38-40; EF 20%. [id number] and 2011 23heart 24EGD Vital Signs Most recent to oldest [Reference Range]: 1 Height 176.5 cm (01/10/25 9:10 AM) Patient Weight 91.8 kg (01/10/25 9:10 AM) Body Mass Index 29.47 kg/m2 (01/10/25 9:10 AM) Temperature [36.5-37.9 DegC] 36.3 DegC *LOW* (01/10/25 9:10 AM) Heart Rate 73 bpm (01/10/25 9:10 AM) Respiratory Rate 20 br/min (01/10/25 9:10 AM) Blood Pressure 118/75mmHg (01/10/25 9:10 AM) Mean Blood Pressure 85 mmHg (01/10/25 9:10 AM) Cuff Pulse Pressure 43 mmHg (01/10/25 9:10 AM) BP Location # 1 Left Arm (01/10/25 9:10 AM) Social History Social History Type Response Smoking Status Former Smoker, quit > 1 yr Sex Male Sex Representation Male (finding) EKG study * Contributor_system, MUSE01: VERIFY, PERFORM Event Display: EKG Authored Date: Please click on link to see image. Anes H&P * MD Shena, Iesha Antunez: MODIFY MD Chatterjee Selina N: MODIFY, SIGN MD Chatterjee Selina N: SIGN, VERIFY MD Chatterjee Selina N: VERIFY, MODIFY, MODIFY, MODIFY, MODIFY, MODIFY, MODIFY, MODIFY, MODIFY, MODIFY,SIGN Event Display: Anes H&P Authored Date: Patient: MAMIE FELIPE Age: 74 years Sex: Male : 1950 Associated Diagnoses: None Author: MAGALI Yang Charlynn J Preoperative Information Anesthesia Preop Info: Procedure: L1-5 THRU L4-5 LAMINECTOMY, L2-5 POSTERIOR INSTRUMENTED FUSION, ALLOGRAFT Date: 01/20/25 12:10 Surgeons: MD Mable, Mynor Clark Diagnosis: LUMBAR STENOSIS WITH NEUROGENIC CLAUDICATION, LUMBAR FACET CYST, FORAMINAL STENOSIS . History of Present Illness 74 y.o. male with ho CAD/ DE ([place] heart), CHF/ s/p heart transplant (2013), BPH, CKD, parkinsonsand lumbar stenosis. Plan above Anesthesia History PONV: Denies. History of Motion Sickness: Denies. Patient Complications: Negative. Family History of Anesthesia Problems: Negative. 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 Symptoms: Denies SOB/CP. Medical History Cardiovascular: F/b [facility] (dually F/B [facility] cardiac transplant team and [place] cardiology), See studies or note below. Hypertension: Beta Kurt, ARB, Calcium channel kurt, BP 118/75 with APEC vital signs, orthostatic symptoms improved after HTN meds adjusted last year. CAD: DE 2012 ([place] heart), CHF, cardiogenic shock and 1 year LVAD prior to heart transplant ([facility]-2013). No CP/Angina. No SL-NTG used. Valves: Mild MR (01/07/24 [facility] echo). Heart failure: CHF, S/P heart transplant, Date 2013, Stable (on immunosuprressive therapy), Last EF50 - 55& 01/07/24 [facility] echo. Renal: CKD, Stage III (F/B [facility] nephrology), BPH. Flomax. Pulmonary: Ex-smoker (<1ppd x 8 years, quit 1987), Completed covid vaccines x 2. Neurologic: Parkinsons (dx 2022): Oral medication. 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 Health Status Allergies: Allergic Reactions (Selected) NKA. Histories Procedure History: Biopsy of heart ([id number]) in the month of 04/2023 at 72 Years. Shave biopsy and cauterization of skin ([id number]) performed by MD Landy, Taisha Toledo on 09/05/2022 at 71 Years. Shave biopsy and cauterization of skin ([id number]) performed by MD Jefferson, Subha Dodge on 06/12/2022 at 71 Years. Comments: 06/12/2022 11:15 YARED Romero LPN, Diah ED&C Shave biopsy and cauterization of skin ([id number]) performed by MD Bill Sara B on 02/27/2022 at 71 Years. Shave biopsy ([id number]) performed by MD Bill Sara B on 07/26/2021 at 70 Years. Comments: 07/26/2021 11:03 YARED Salazar LPN, Carolyn chin Shave biopsy and cauterization of skin ([id number]) performed by MD Bill Sara B on 11/15/2020 at 70 Years. Punch biopsy ([id number]) on 04/24/2020 at 69 Years. Mohs surgery ([id number]) performed by MD Poon Cassandra on 11/10/2019 at 69 Years. 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 Fit crown to tooth ([id number]) in the month of 08/2019 at 69 Years. Excision biopsy ([id number]) performed by MD Bill Sara B on 04/21/2019 at 68 Years. Comments: 04/21/2019 15:10 YARED Salazar LPN, Carolyn A- right antihelix B- right chin Mohs micrographic surgery ([id number]) performed by MD Poon Cassandra on 10/14/2018 at 68 Years. Shave biopsy and cauterisation of skin ([id number]) performed by MD Bill Sara B on 08/19/2018at 67 Years. Comments: 08/19/2018 11:47 BELA Redmond LPN, Angela left cheek Shave biopsy and cauterisation of skin ([id number]) performed by MD Bill Sara B on 08/19/2018at 67 Years. Comments: 08/19/2018 11:48 BELA Redmond LPN Evelin left superior helix Punch biopsy of skin ([id number]) performed by MD Rhonda, Samy Man on 07/08/2018 at 67 Years. Shave biopsy and cauterization of skin ([id number]) on 03/16/2018 at 67 Years. Comments: 03/16/2018 11:07 YARED Salazar LPN, Carolyn A- left nasal sidewall B-Right chin Shave biopsy ([id number]) on 09/16/2017 at 67 Years. Comments: 09/16/2017 08:52 BELA Salazar LPN, Carolyn A- left thigh B- left tagus ear Electrodesiccation with curettage ([id number]) on 04/28/2017 at 66 Years. Comments: 04/28/2017 14:43 YARED Gould LPN, Whitney M left lower calf Shave biopsy and cauterization of skin ([id number]) on 03/19/2017 at 66 Years. Comments: 03/19/2017 09:46 YARED Ansari LPN, Edith L left calf X-RAY EXAM [facility] 4/5 ([id number]) on 02/23/2017 at 66 Years. Comments: 02/25/2017 14:14 YARED Marroquin LPN, Brenda 1. No fracture or subluxation within the lumbar spine. 2. Mild to moderate degenerative changes as described above. 3. Partial fusion of the right sacroiliac joint. Hip X-ray ([id number]) on 02/23/2017 at 66 Years. Comments: 02/25/2017 14:15 YARED Marroquin LPN, Brenda Mild right hip osteoarthritis. No fracture or dislocation. Ankle X-ray right ([id number]) on 09/18/2016 at 66 Years. Comments: 09/19/2016 08:31 BELA Borjas LPN, Kimbra J Impression: Partial healing of an oblique fracture distal fibula Shave biopsy and cauterization of skin ([id number]) performed by MD Landy, Taisha Toledo on 08/21/2016at 65 Years. Ankle X-ray right ([id number]) on 08/07/2016 at 65 Years. Comments: 08/07/2016 17:33 BELA Borjas LPN, Kimbra J Impression: No change in alignment of the oblique/spiral nondisplaced fracture of the distal fibula. No definite callus formation is yet evident. Ankle X-ray ([id number]) on 07/31/2016 at 65 Years. Comments: 07/31/2016 17:04 YARED Borjas LPN, Kimbra J Impression: Unchanged appearance of a spiral fracture through the distal fibula as compared to 07/25/2016. Fibula X-ray ([id number]) on 07/25/2016 at 65 Years. Comments: 07/25/2016 11:44 YARED Salazar LPN, Carolyn Nondisplaced oblique fracture of the distal fibula Ankle X-ray ([id number]) on 07/25/2016 at 65 Years. Comments: 07/25/2016 11:58 YARED Salazar LPN, Carolyn Minimally displaced obliqui distal right fibular fracture No ankle mortise widening Shave biopsy and cauterization of skin ([id number]) on 08/17/2015 at 64 Years. Procedure ([id number]) on 11/14/2014 at 64 Years. Comments: 11/17/2014 09:14 Gurvinder Montalvo biopsy of the heart Heart transplant ([id number]) on 05/30/2014 at 63 Years. Comments: 06/01/2014 14:08 YARED Goodman MD, Manuel Lazo Bi-Caval anastomosis; [facility] LVAD explant. Picc line insertion, L upper arm ([id number]) on 02/20/2014 at 63 Years. Left ventricular assist device, Heartware on 06/03/2013 at 62 Years. Comments: 06/07/2013 09:50 Manuel Valenzuela In OR oozing from anterior wall noted, suggesting impending LV rupture; [facility] LVAD as BTT; ECMOexplant. cardiac catheterization and PCI on 05/26/2013 at 62 Years. Comments: 05/27/2013 18:45 Manuel Valenzuela Cath, 05/26/13: pLAD 100%, PCI VF with wire, shock x7, thrombectomy, BMS 3x15; mLAD 30-40%, Circ irregs, RCA 20%; EDP 38-40; EF 20%. colonoscopy 02/18/07 in 2011 at 62 Years. Comments: 07/29/2013 10:57 YARED Bay Tameka M 2006 and 2011 Tonsillectomy ([id number]) in 1953 at 3 Years. Excision squamous cell cancer left cheek. stress echo 04/20/13. Biopsy ([id number]). Comments: 08/21/2016 09:23 BELA Cruz LPNYsabel Cody heart Procedure ([id number]). Comments: 11/15/2020 11:29 BELA Salazar LPN, Carolyn EGD Mohs micrographic surgery ([id number]).. 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 Former Smoker, quit > 1 yr Other Tobacco Use: Never used other tobacco products Alcohol Frequency: Occasionally Alcohol Type: Beer, Wine Recreational Drugs: Denies . Physical Examination VS/Measurements: 01/10/2025 09:10 Temp: 36.3 Pulse: 73 BP: 118/75 MAP: 85 RR: 20 SPO2: 97 FIO2: Wt(kg): 91.8 BMI: 29 Height(cm): 176.5 . General: Alert, Oriented, Well developed, Well-nourished (pleasant elderly white male. No pain at rest, but 4/10 back pain with standing/ moving), Appears stated age, accompanies patient to preop visit today.. Airway: Mallampati classification: III (soft palate, base of uvula visible), Mustache. Hyomental Distance: 30-40mm, Receding chin. Mouth: Within normal limits, Opens wide, Large tongue. Teeth: Within normal limits, No loose or infected teeth. Head: Normocephalic, Glasses. Neck: Supple, Good extension, Good flexion, No masses, Fleshy anteriorly. Trachea: Midline. Respiratory: CTA bilaterally. Cardiovascular: Heart: RRR, No murmurs, Healed sternotomy surgery scar. Edema: None. Gastrointestinal: Soft, Normal bowel sounds, Non-tender. Musculoskeletal: Normal strength (B. UE), Generalized weakness (B.LE). Neurologic: Normal sensory (LBP and B.LE pain and weakness), Normal motor, No focal deficits. Assessment and Plan Medications: Pre-Surgery Medication Instructions It is very important we have an accurate list of your medications prior to your procedure. Please review this medication list with your home medications and call [phone] prior to your procedure with any changes to your prescription medications. Bring presurgery instructions along day of surgery. You will need to notify your nurse of last doseand time of medications you took, on day of surgery: • amLODIPine (amLODIPine 5 mg oral tablet) – 1 tab by mouth once daily .Take 1 tab (5 mg) by mouth daily qhs — May take as usual evening before surgery • ascorbic acid (Vitamin C) – 500 mg by mouth once daily . — Do not take morning of surgery • calcium-vitamin D (Os-Ron 500 + D) – 1 tab by mouth 2 times daily . — Do not take morning of surgery • carbidopa-levodopa (carbidopa-levodopa 25 mg-100 mg oral tablet) – 2 tab by mouth 2 times daily . — Take morning of surgery, as usual • fluocinonide topical (fluocinonide 0.05% topical cream) – 1 appl topically 2 times daily .To itchy red spots of eczema BID as needed. — Do not take morning of surgery • gabapentin (gabapentin 300 mg oral capsule) – 1 cap by mouth 3 times daily . — Take morning of surgery, as usual • metoprolol (metoprolol succinate 25 mg oral tablet, extended release) – 1 tab by mouth at bedtime . — May take as usual evening before surgery • mycophenolate mofetil (mycophenolate mofetil 250 mg oral capsule) – 1 cap by mouth every 12 hours . — Continue as usual until surgery • rasagiline (rasagiline 1 mg oral tablet) – 1 tab by mouth once daily . — Take morning of surgery, as usual • sirolimus (sirolimus 2 mg oral tablet) – 1 tab by mouth once daily . — as directed by surgeon and [facility] transplant cardiology (off for surgery, affects healing, resume as directed by medical provider after surgery) • solifenacin (solifenacin 5 mg oral tablet) – 1 tab by mouth once daily . — Do not take morning of surgery • tacrolimus (tacrolimus (generic) 0.5 mg oral capsule) – 3 cap by mouth every 12 hours .Take 3caps (1.5 mg total) by mouth twice a day — Take morning of surgery, as usual • tamsulosin (tamsulosin 0.4 mg oral capsule) – 1 cap by mouth twice daily . — Take morning of surgery, as usual_ • valsartan (valsartan 80 mg oral tablet) – 1 tab by mouth once daily . — Do not take morning of surgery_ . Does patient use aspirin?: Yes. Does patient use beta blockers?: No. Does patient use BLAIRE- I/ARB drugs?: No. Does patient use narcotic analgesics for chronic pain? (>1 month AND >30mg morphine or equivalent daily): No. Anesthesiologist Assessment and Plan Problems: patient is stable from his cardiac transplant - prior to him developing back pain, he wasfairly active without symptoms. I think he can proceed with negligable increased risk. Disposition: No further testing or evaluation indicated preoperatively, may proceed with procedure as scheduled. ASA Classification: Class III. Anesthetic Plan: Anesthetic technique discussed: General anesthesia. Airway plan discussed: Oral endotracheal tube. Risks discussed: Nausea-vomiting, Sore throat, Dental injury, Serious complications. Special techniques and precautions discussed: Nausea-vomiting. Review / Management Laboratory Results: Lab results 11/29/2024 07:04 EST Na 141 mmol/L K 3.9 mmol/L Cl- 107 mmol/L HCO3 27 mmol/L Anion Gap 7 mmol/L BUN 26 mg/dL HI Cret 1.54 mg/dL HI eGFR CKD-EPI 47 mL/min/1.73 m2 LOW Glu 102 mg/dL Ca 9.2 mg/dL Mg 2.1 mg/dL WBC 3.37 K/uL LOW Hgb 12.6 g/dL LOW Hct 40.4 % RBC 4.38 M/uL LOW MCV 92.2 fL MCHC 31.2 g/dL LOW MCH 28.8 pg RDW 13.2 % Plts 156 K/uL MPV 10.4 fL Type of Diff: AUTO Immature Gran% 0.9 % Neut% 63.4 % Lymph% 20.5 % [place]% 10.4 % Baso% 0.6 % Eos% 4.2 % Immat Gran, Abs 0.03 K/uL Neut, Abs 2.14 K/uL Lymph, Abs 0.69 K/uL LOW [place], Abs 0.35 K/uL Baso, Abs 0.02 K/uL Eos, Abs 0.14 K/uL Rapamycin 8.2 ng/mL ALT 13 unit/L T Bili 0.5 mg/dL Alk Phos 66 unit/L AST 17 unit/L . Ordered Today: Per surgery protocol. EK01/10/25 [facility] EKG: NSR 70bpm, LAD, RBBB. Diagnostics: 10/13/24 [facility] cardiac consult: Assessment/Plan 1. Chronic systolic heart failure 2. Coronary artery disease 3. Heart transplanted 4. Hyperlipidemia 5. Hypertension 6. Immunosuppression From my standpoint he is doing remarkably well. His orthostatic symptoms have completely resolved and his most recent renal function has improvedwith valsartan and reducing his amlodipine. He denies any anginal symptoms or heart failure symptoms nor any arrhythmia symptoms. His LDL remains elevated and I recommended increasing his Crestor from 5 mg to 10 mg. He is on chronic immunosuppression for his transplant and follows with the transplant team in May with an echocardiogram just prior to that visit. We know that his LV function remains preservedbased on his echo of December 2023. He follows with dermatology closely given his chronic immunosuppression. I will see him in a year but if he has any issues or happy to see him sooner. 06/09/24 [facility] cardiac transplant clinic consult: Plan: At this time we recommended no change. His sirolimus level is therapeutic. He seems to be doing better with controlled blood pressure on his present regimen. We recommended no change at this time. Dulce see our cardiology partners in [place] in the springtime. We plan to see him in a year and last there are intercurrent events. He will get a follow-up echocardiogram in [place] around this time next year. 01/07/24 [facility] echo (done due to VARNER and lightheadedness): Summary 1. Technically difficult study; Successfully enhanced with Definity contrast per lab protocol for better endocardial definition. 2. Normal left ventricular size and systolic function with no regional wall motion abnormalities. 3. Ejection fraction as calculated by Biplane Simpsons method is 65%. 4. Mild concentric left ventricular hypertrophy. 5. Normal LV diastolic function with normal left atrial pressure. 6. Dilated right ventricle with low normal systolic function. TAPSE is 1.6 cm. 7. Normal biatrial size. 8. Structurally normal mitral valve. 9. Trace to mild mitral valve regurgitation. 10. No significant valvular abnormalities. 11. Normal estimated pulmonary artery pressures, estimated PASP is 31 mmHg. 12. Compared to the previous study performed 05/28/2023, the pulmonary artery systolic pressure is now normal.. Orders placed for day of surgery: None. Pending issues: None. Patient Education Patient Education: Adult Presurgery Instructions 1 (CDUNCAN) (CDUNCAN). Electronic Signature on File Electronically Reviewed/Signed by: MAGALI Stark Author Signature Dt/Tm:01/10/2025 09:59 AM Preoperative/Anesthesia Clinic Electronically Reviewed/Signed by: Iesha Chatterjee MD Cosigner Signature Dt/Tm: 01/10/2025 10:01 AM Department of Anesthesia [facility] Patient Care team information Care Team Personnel Name: Bonita Ritchie Francis Position: Pharmacist Schedule II Member Role: Pharmacy - Lifetime Address: [facility] [address] [place] [address] [place] Name: MAGALI Clrak Kathleen R Position: Nurse Pract - Card Intv Cardiology Member Role: Lifetime Relationship Address: [address] [place] [address] [place] Telecom: [phone] Name: Bonita Roy Paul T Position: Pharmacist Schedule II Member Role: Pharmacy - Lifetime Address: [facility] [address] [place] [address] [place] Name: MAGALI Geronimo Angela M Position: Nurse Pract - Card Crit Care Member Role: Lifetime Relationship Address: [address] [place] [address] Telecom: [phone] Name: MD Ahmadi Michael P Position: Physician - Internal Med Member Role: Primary Care Provider Address: [address] [place] [address] [place] Telecom: [phone] Name: MAGALI Caruso Thomas Position: Nurse Pract - Heart Failure Member Role: Lifetime Relationship Address: [address] [facility] [address] [place] [address] [place] Telecom: [phone] Name: Bonita Pastor Shailja Position: Pharmacist Member Role: Pharmacy - Lifetime Address: [facility] [address] Name: MD Hart Behzad Position: Physician - CT Surgery Member Role: Lifetime Relationship Address: [address] [facility] [address] [place] [address] [place] Telecom: [phone] Care Team Related Persons Name: WILMER FELIPE Name: CESAR FELIPE Insurance Providers Guarantor name: MAMIE FELIPE Health Plan Information #: 1 Payer: MEDICARE Member Number: [id number] Policy Number: NA Group Number: NA Payer Identifier: [id number] Health Plan Information #: 2 Payer: [facility] Member Number: [id number] Policy Number: NA Group Number: [id number] Payer Identifier: NA Health Plan Information #: 3 Payer: [employer] Member Number: [id number] Policy Number: NA Group Number: NA Payer Identifier: [id number]
--- OUTSIDE RECORDS SUMMARY | 2025-01-27 00:40 | External Medical Summary | Continuity of Care Document ---
Author Name Unknown Organization [facility] [address] [facility] [place] [id number] Care Team Providers Care Manager Pricing Name Role Phone Uziel Ahmadi Primary Care Physician [phone] Encounter [facility] [id number] Date(s): 01/12/25 - 01/12/25 [facility] [address] [facility] [address], [address] [place], [place] [phone] Encounter Diagnosis Heart transplant status(Final) - Other penitentiary (current) drug therapy(Final) - Discharge Disposition: Home or Self Care Attending Physician: MD Huitron David H Referring Physician: MD Huitron David H Encounter Type: Clinic Allergies, Adverse Reactions, Alerts No Known Allergies [...] tab (5 mg) by mouth daily, Pharmacy: [facility] Start Date: 03/17/24 Stop Date: [...] spots of eczema BID as needed., Pharmacy: [facility] Start Date: 09/05/22 Status: Ordered Quantity: 60.0 Unit: g Repeat number: 2 gabapentin 300 mg oral capsule Start: 01/03/25 3:52:00 PM EDT, 1 cap, PO, tid, Disp# 90 cap, Refills: 5, Pharmacy: [id number] Start Date: 01/03/25 Stop [...] NOT RECEIVE E-SCRIPT 08/19, RESENDING 08/23., Pharmacy: [facility] Start Date: 08/23/24 Stop Date: 08/18/25 Status: Ordered Quantity: 90.0 Unit: tab Repeat number: 4 Indications: Encounter for issue of repeat prescription; Heart transplant status; Other penitentiary (current) drug therapy; mycophenolate mofetil 250 mg oral capsule Start: 11/19/24 10:26:00 AM EST, 1 cap, PO, q12h, Disp# 180 cap, Refills: 3, Note to Pharmacy: Medicare part B; Date of Transplant: 05/30/2014; Dose: 250mg q12hr., Pharmacy: [facility] Start Date: 11/19/24 Status: Ordered [...] Daily, Disp# 90 tab, Refills: 0, Pharmacy: [facility] Start Date: 12/16/24 Status: Ordered [...] to tacrolimus for upcoming invasive surgery., Pharmacy: [id number] Start Date: 01/05/25 Stop Date: 03/06/25 Status: Ordered Quantity: 180.0 Unit: cap Repeat number: 2 Indications: Other exterminator (current) drug therapy; Heart transplant status; Other exterminator (current) drug therapy; tamsulosin 0.4 mg oral capsule Start: 04/17/23 3:48:00 PM EDT, 1 cap, PO, bid Start Date: 04/17/23 Status: Ordered Repeat number: 1 valsartan 80 mg oral tablet Start: 12/17/24 12:03:00 PM EDT, 1 tab, PO, Daily, Disp# 90 tab, Refills: 3, Pharmacy: [facility] Start Date: 12/17/24 Status: Ordered Quantity: 90.0 Unit: tab Repeat number: 4 Indications: Essential (primary) hypertension; Hyperlipidemia, unspecified; Heart transplant status; Atherosclerotic heart disease of [place] coronary artery without angina pectoris; Disorder involving the immune mechanism, unspecified; Vitamin C Start: 01/10/25 9:08:00 AM EDT, 500 mg =, PO, Daily Start Date: 01/10/25 Status: Ordered Repeat number: 1 Problem List Condition Confirmation Course Effective Dates [...] demonstrates carbapenemase production."Wound.Cx June 27, 2014 09:56 6006/27/2014 Wound Culture old LVAD driveline site incision 1+Klebsiella pneumoniae (ESBL) Carbapenemase positive: "This isolate demonstrates carbapenemase production." 7Heartware LVAD, explant ECMO; Bridge to transplant. Procedures Procedure Date Related Diagnosis Body Site [...] Compl eted 1ED&C 2chin 3SCC Left Sup [place] SCC Right Pre-auricular 4A- right antihelix B- [...] irregs, RCA 20%; EDP 38-40; EF 20%. and 2011 23heart 24EGD Results Laboratory List Name Date Extra Lavender (EXTRA LAVENDER) 01/12/25 Basic Metabolic Panel (BASIC METAB PANEL ) 01/12/25 Tacrolimus Level (FK506) 01/12/25 Most recent to oldest [Reference Range]: 1 Lavender Specimen available f rom 0 to 3 days based on specimen stability. Please use addon order if you wish to order testing. *Unknown* (01/12/25 8:06 AM) eGFR CKD-EPI [>60 mL/min/1.73 m2] 37 mL/ min/1.73 m2 1 *LOW* (01/12/25 7:47 AM) Estimated CrCl 38.12 mL/min (01/12/25 7:47 AM) Anion Gap [5-14 mmol/L] 6 mmol/L (01/12/25 7:47 AM) BUN [7-20 mg/dL] 35 mg/dL *HI* (01/12/25 7:47 AM) Ca [8.4-10.2 mg/dL] 9.2 mg/dL (01/12/25 7:47 AM) Cl- [96-107 mmol/L] 109 mmol/L *HI* (01/12/25 7:47 AM) HCO3 [22-30 mmol/L] 26 mmol/L (01/12/25 7:47 AM) Cret [0.70-1.30 mg/dL] 1.89 mg/dL *HI* (01/12/25 7:47 AM) FK506 5.5 ng/mL 2 (01/12/25 7:47 AM) Glu [74-106 mg/dL] 98 mg/dL (01/12/25 7:47 AM) K [3.5-5.1 mmol/L] 4.1 mmol/L (01/12/25 7:47 AM) Na [137-145 mmol/L] 141 mmol/L (01/12/25 7:47 AM) 1Result Comment: Testing Performed By: Dept of Pathology [facility] [address], [address], [place] [address] 2Result Comment: No guideline supported therapeutic range exists for tacrolimus in whole blood. The complexity of the clinical state, individual differences in sensitivity to immunosuppressive and nephrotoxic effects of tacrolimus, co-administration of other immunosuppressants, type of transplant, time post-transplant and a number of other factors contribute to different requirements for optimal blood levels of tacrolimus. Therefore, individual tacrolimus values cannot be used as the sole indicator for making changes in treatment regimen and each patient should be thoroughly evaluated clinically before changes in treatment regimens are made. Each user must establish his or her own ranges based on clinical experience. The following range is a suggested guideline: 5.0 - 20.0 ng/mL. Testing was performed by Immunoassay ([employer]). Social History Social History Type Response Smoking Status Former Smoker, quit > 1 yr Sex Male Sex Representation Male (finding) Patient Care team information Care Team Personnel Name: Bonita Ritchie Francis Position: Pharmacist Schedule II Member Role: Pharmacy - Lifetime Address: [facility] [address] [place] [address] Name: MAGALI Clark Kathleen R Position: Nurse Pract - Card Intv Cardiology Member Role: Lifetime Relationship Address: [address] [place] [address] [place] Telecom: [phone] Name: Bonita Roy Paul T Position: Pharmacist Schedule II Member Role: Pharmacy - Lifetime Address: [facility] [address] Name: MAGALI Geronimo Angela M Position: Nurse Pract - Card Crit Care Member Role: Lifetime Relationship Address: [address] [place] [address] Telecom: [phone] Name: MD Ahmadi Michael P Position: Physician - Internal Med Member Role: Primary Care Provider Address: [address] [place] [address] Telecom: [phone] Name: MAGALI Caruso Thomas Position: Nurse Pract - Heart Failure Member Role: Lifetime Relationship Address: [address] [place] [address] Telecom: [phone] Name: Bonita Pastor Shailja Position: Pharmacist Member Role: Pharmacy - Lifetime Address: [facility] [address] Name: MD Hart Behzad Position: Physician - CT Surgery Member Role: Lifetime Relationship Address: [address] [place] [address] Telecom: [phone] Care Team Related Persons Name: WILMER FELIPE Name: CESAR FELIPE Insurance Providers Guarantor name: MAMIE FELIPE Health Plan Information #: 1 Payer: MEDICARE Member Number: [id number] Policy Number: NA Group Number: NA Payer Identifier: [id number] Health Plan Information #: 3 Payer: [employer] Member Number: [id number] Policy Number: HIRAM Group Number: NA Payer Identifier: [id number] Health Plan Information #: 2 Payer: [facility] Member Number: [id number] Policy Number: HIRAM Group Number: [id number] Payer Identifier: [id number]
--- OUTSIDE RECORDS SUMMARY | 2025-01-27 00:41 | External Medical Summary | Continuity of Care Document ---
Author Name Unknown Organization [facility] [address] Address [address] [id number] Care Team Providers Care Skates Operator Name Role Phone Uziel Ahmadi Primary Care Physician [phone] Encounter [facility] [id number] Date(s): 01/05/25 - 01/05/25 [facility] [address] [facility] [place], [place] [id number] Encounter Diagnosis Hx of skin malignancy(Discharge Diagnosis) - 01/05/25 Encounter for follow-up examination after completed treatment for cancer (Discharge Diagnosis) - 01/05/25 Immunosuppression(Discharge Diagnosis) - 01/05/25 Multiple nevi(Discharge Diagnosis) - 01/05/25 Sun-damaged skin(Discharge Diagnosis) - 01/05/25 ACTINIC KERATOSIS(Discharge Diagnosis) - 01/05/25 Discharge Disposition: Home or Self Care Attending Physician: MD Bill Sara B Referring Physician: MD Bill Sara B Encounter Type: Clinic Allergies, Adverse Reactions, Alerts No Known Allergies Assessment and Plan Extracted from: Title:Dermatology Office Visit Note Author:Tonny enrique MD, Sara B Date:01/05/25 1. Hx of skin malignancy Warning signs of skin cancer were reviewed. Sun protection reviewed. Follow-up in 6 months, sooner for any changing or growing lesions or acute concerns. I also recommended monthly self skin exams 2. Encounter for follow-up examination after completed treatment for cancer Scars are clear, patient aware of increased risk for call with any new or changing lesions 3. Immunosuppression Patient aware of increased risk of skin cancer due to chronic immunosuppression 4. Multiple nevi Chronic, within normal limits today 5. Sun-damaged skin Continue level 30 or higher sunscreen hats and sunglasses 6. ACTINIC KERATOSIS Acute. Discussed precancerous nature and 3 to 5% chance of development into squamous cell over years. He and I elected to follow these as they are thin early and he has spinal surgery coming up within the next couple weeks. We will see him back next fall. If anything gets larger or sore in the interim he will call me Immunizations Given and Recorded Vaccine Date Status Refusal Reason influenza virus vaccine, inactivated 08/09/22 Give n influenza virus vaccine, inactivated 07/31/21 Naveen rded influenza virus vaccine, inactivated 07/26/20 Give n influenza virus vaccine, inactivated 08/04/19 Give n influenza virus vaccine, inactivated 07/21/17 Give n influenza virus vaccine, inactivated 07/19/16 Give n influenza virus vaccine, inactivated 05/30/15 Naveen rded SARS-CoV-2 (COVID-19) mRNA-1273 vaccine 08/08/21 R ecorded SARS-CoV-2 (COVID-19) mRNA-1273 vaccine 12/07/20 R ecorded SARS-CoV-2 (COVID-19) mRNA-1273 vaccine 11/09/20 R ecorded tetanus/diphtheria/pertuss, acel (Tdap) 05/16/21 R ecorded pneumococcal 23-valent vaccine 07/19/16 Given pneumococcal 13-valent vaccine 07/05/15 Given tetanus toxoids-diphtheria, Td (Adult) 01/13/12 Re corded Mental Status 01/05/25 Barriers to Learning one year Vision imp airment, Other: wear glasses Mandatory Health Literacy Documentation Yes Health Literacy Communication Barriers N ever Primary Language Niuean Problem List Condition Confirmation Course Effective Dates [...] Confirmed Active Left ventricular assist device present Confirmed 06/03/13 Active Low back pain Confirmed [...] Effective Dates Health Status Clinical Service Informant Hx of skin malignancy Discharge Diagnosis 01/05/25 Multiple nevi Discharge Diagnosis 01/05/25 Sun-damaged skin Discharge Diagnosis 01/05/25 ACTINIC KERATOSIS Discharge Diagnosis 01/05/25 Encounter for follow-up examination after completed treatment for cancer Discharge Diagnosis 01/05/25 Immunosuppression Discharge Diagnosis 01/05/25 Procedures Procedure Date Related Diagnosis Body Site Status Shave biopsy and cauterization of skin 09/05/22 [...] cardiac catheterization and PCI 21 05/26/13 Completed Tonsillectomy 1952 Completed Biopsy 22 Completed Biopsy of heart Completed colonoscopy 02/18/07 23 Co mpleted Excision squamous cell cance r left cheek Completed Mohs micrographic surgery Completed Procedure 24 Completed stress echo 04/20/13 Compl eted 1ED&C 2chin 3SCC Left Sup [place] SCC Right Pre-auricular 4A- right antihelix B- [...] irregs, RCA 20%; EDP 38-40; EF 20%. 22heart and 2011 24EGD Social History Social History Type Response Smoking Status Former Smoker, quit > 1 yr Sex Male Sex Representation Male (finding) Dermatology Outpatient Note * MD Landy, Taisha [place]: PERFORM Event Display: Dermatology Outpt Note Authored Date: Chief Complaint skin check- scalp History of Present Illness The patient is a pleasant 74-year-old male with a history of heart transplant, chronically immunosuppressed for >8 years, doing well from that standpoint. They changed his immunosuppressants and is now off oral tacrolimus. The chief complaint mention concerns on scalp but patient says really nothing bothering him today. 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 Mohs for squamous cell on the right conchal bowl in April 2020. Had a squamous cell on the left lower lip diagnosed in February 2022, and a squamous cell on the left calf and May 2022. [1] Of note the patient is due to have spinal surgery on January 21. He would prefer not to have procedures today unless necessary. He is walking with a walker in the interim to try not to fall. Physical Exam Gen: Well appearing patient, no acute distress. Alert and oriented x3. Good mood. Skin examination completed of face, eyelids, scalp, hair, lips, ears, neck, chest, back, abdomen,upper and lower extremities bilaterally including hands, feet, fingers and toes, fingernails and toenails, pt declined buttocks and groin. Patient has sun damaged skin especially face neck scalp forearms. He has 100s of seborrheic keratoses. Scars are clear without any evidence of recurrent skin cancer. No neck supraclavicular posterior occipital or axillary lymphadenopathy. Occasional less than 6mm in diameter well circumscribed round brown macular nevi within normal limits under dermoscopy. This includes congenital nevus right lateral knee. He has an occasional actinic keratosis right earlobe x 2 right antihelix left antihelix. Assessment/Plan 1. Hx of skin malignancy Warning signs of skin cancer were reviewed. Sun protection reviewed. Follow-up in 6 months, sooner for any changing or growing lesions or acute concerns. I also recommended monthly self skin exams 2. Encounter for follow-up examination after completed treatment for cancer Scars are clear, patient aware of increased risk for call with any new or changing lesions 3. Immunosuppression Patient aware of increased risk of skin cancer due to chronic immunosuppression 4. Multiple nevi Chronic, within normal limits today 5. Sun-damaged skin Continue level 30 or higher sunscreen hats and sunglasses 6. ACTINIC KERATOSIS Acute. Discussed precancerous nature and 3 to 5% chance of development into squamous cell over years. He and I elected to follow these as they are thin early and he has spinal surgery coming up within the next couple weeks. We will see him back next fall. 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 Cardiogenic Shock| Status: Inactive Changing skin lesion Chronic systolic heart failure Coronary artery disease Cough Eczema Encounter for follow-up examination after completed treatment for cancer Encounter for monitoring tacrolimus therapy Epidermal cyst Heart transplanted Hx of skin malignancy Hyperlipidemia Hypertension Immunosuppression Inflamed seborrheic keratosis Left ventricular assist device present Low back pain Multiple nevi Parkinsons Personal history of squamous cell carcinoma of skin Seborrheic keratosis SK (solar keratosis) Sun-damaged skin Weight disorder Xerosis cutis Resolved Closed fracture of right distal fibula Hyperkeratosis Neoplasm of uncertain behavior Neoplasm of uncertain behavior of skin Pustule Rash Right leg pain Right lumbar radiculopathy Shoulder pain, left Skin lesion 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 Swollen feet Procedure/Surgical History •Shave biopsy and cauterization of skin| Service Date: 09/05/2022•Shave biopsy and cauterization of skin| Service Date: 06/12/2022•Shave biopsy and cauterization of skin| Service Date: 02/27/2022•Shave biopsy| Service Date: 07/26/2021•Shave biopsy and cauterization of skin| Service Date: 0 11/15/2020•Punch biopsy| Service Date: 04/24/2020•Mohs surgery| Service Date: 11/10/2019•Shavebiopsy and cauterisation of skin| Service Date: 10/20/2019•Fit crown to tooth| Service Date: 08/2019•Excision biopsy| Service Date: 04/21/2019•Mohs micrographic surgery| Service Date: 10/14/2018 •Shave biopsy and cauterisation of skin| Service Date: 08/19/2018•Shave biopsy and cauterisation of skin| Service Date: 08/19/2018•Punch biopsy of skin| Service Date: 07/08/2018•Shave biopsy and cauterization of skin| Service Date: 03/16/2018•Shave biopsy| Service Date: 09/16/2017•Electrodesiccation with curettage| Service Date: 04/28/2017•Shave biopsy and cauterization of skin| Service Date: 03/19/2017•Hip X-ray| Service Date: 02/23/2017•X-RAY EXAM ENTIRE SPI 4/5 VW| Service Date: 02/23/2017•Ankle X-ray right| Service Date: 09/18/2016•Shave biopsy and cauterization of skin| Service Date: 08/21/2016•Ankle X-ray right| Service Date: 08/07/2016•Ankle X-ray| Service Date: 07/31/2016•Ankle X-ray| Service Date: 07/25/2016•Fibula X-ray| Service Date: 07/25/2016•Shave biopsy and cauterization of skin| Service Date: 08/17/2015•Procedure| Service Date: 11/14/2014•Heart transplant| Service Date: 05/30/2014•Picc line insertion, L upper arm| Service Date: 01/28•Left ventricular assist device, Heartware| Service Date: 06/03/2013•cardiac catheterization and PCI| Service Date: 05/26/2013•Tonsillectomy| Service Date: 1952•colonoscopy 02/18/07•stress echo 04/20/13•Excision squamous cell cancer left cheek•Biopsy•Biopsy of heart•Procedure•Mohs micrographic surgery Medications amLODIPine(amLODIPine 5 mg oral tablet), 5 mg= 1 tab, PO, Daily, 3 refills calcium and vitamin D combination(Os-Ron 500 + D), 1 tab, PO, bid carbidopa-levodopa(carbidopa-levodopa 25 mg-100 mg oral tablet), 2 tab, PO, bid fluocinonide topical(fluocinonide 0.05% topical cream), 1 appl, topical, bid, 1 refills gabapentin(gabapentin 300 mg oral capsule), 300 mg= 1 cap, PO, tid, 5 refills metoprolol(metoprolol succinate 25 mg oral tablet, extended release), 25 mg= 1 tab, PO, qhs, 3 refills mycophenolate mofetil(mycophenolate mofetil 250 mg oral capsule), 250 mg= 1 cap, PO, q12h, 3 refills rasagiline(rasagiline 1 mg oral tablet), 1 mg= 1 tab, PO, Daily sildenafil(sildenafil 50 mg oral tablet), 100 mg= 2 tab, PO, Daily, 1 refills sirolimus(sirolimus 2 mg oral tablet), 2 mg= 1 tab, PO, Daily sirolimus(sirolimus 1 mg oral tablet) solifenacin(solifenacin 5 mg oral tablet), 5 mg= 1 tab, PO, Daily tamSULOsin(tamsulosin 0.4 mg oral capsule), 0.8 mg= 2 cap, PO, Daily valsartan(valsartan 80 mg oral tablet), 80 mg= 1 tab, PO, Daily, 3 refills Allergies NKA Social History Smoking Status Former Smoker, quit > 1 yr Alcohol - Comments: USAUDIT-C score = 1 Exercise Times per week:Daily Exercise type:Walking - Comments: Golf 3-4 times a week Substance Abuse - Denies Substance Abuse Tobacco - Denies Tobacco Use Family History Alzheimer disease: Mother. Bone cancer..: Father. Breast cancer: Sister. Coronary artery disease: Father and Brother. Heart attack: Father and Brother. Renal cancer..: Father. Health Status Family Member(s) Family Member(s) Relationship: Mother, Age: 71 Years, Cause: Complications of dementia Relationship: Father, Age: 69 Years, Cause: Cancer [1] Dermatology Office Visit Note; MD Landy, Taisha oTledo 06/30/2024 17:00 EDT Electronic Signature on File Electronically Reviewed/Signed by: Taisha Bill MD Author Signature Dt/Tm:01/05/2025 02:10 PM Department of Dermatology [facility] Patient Care team information Care Team Personnel Name: Bonita Ritchie Francis Position: Pharmacist Schedule II Member Role: Pharmacy - Lifetime Address: [facility] [address] [place] [address] Name: MAGALI Clark Kathleen R Position: Nurse Pract - Card Intv Cardiology Member Role: Lifetime Relationship Address: [address] [place] [address] Telecom: [phone] Name: Bonita Roy Paul T Position: Pharmacist Schedule II Member Role: Pharmacy - Lifetime Address: [facility] [address] [place] [address] [place] Name: MAGALI Geronimo Angela M Position: Nurse Pract - Card Crit Care Member Role: Lifetime Relationship Address: [address] [place] [address] Telecom: [phone] Name: MD Ahmadi Michael P Position: Physician - Internal Med Member Role: Primary Care Provider Address: [address] [address] [place] Telecom: [phone] Name: MAGALI Caruso Thomas Position: Nurse Pract - Heart Failure Member Role: Lifetime Relationship Address: [address] [place] [address] [place] Telecom: [phone] Name: Bonita Pastor Shailja Position: Pharmacist Member Role: Pharmacy - Lifetime Address: [facility] [address] Name: MD Tanner, Roberto Position: Physician - CT Surgery Member Role: Lifetime Relationship Address: [address] [place] [address] Telecom: [phone] Care Team Related Persons Name: WILMER FELIPE Name: CESAR FELIPE Insurance Providers Guarantor name: MAMIE FELIPE Health Plan Information #: 1 Payer: MEDICARE Member Number: [id number] Policy Number: NA Group Number: NA Health Plan Information #: 2 Payer: [employer] Member Number: [id number] Policy Number: NA Group Number: NA Health Plan Information #: 3 Payer: [employer] [facility] Member Number: NA Policy Number: NA Group Number: NA Health Plan Information #: 4 Payer: [facility] Member Number: NA Policy Number: NA Group Number: NA
--- OUTSIDE RECORDS SUMMARY | 2025-01-27 00:41 | External Medical Summary | Continuity of Care Document ---
Author Name Unknown Organization [facility] [address] [place] [address] DAVIE CANO [id number] Care Team Providers Care Turbine Engine Assembler Name Role Phone GaldinoUziel sultana Destini Primary Care Physician [phone] [id number] Date(s): 12/22/24 - 12/22/24 [facility] [address] [facility] [address], [address], [address] DAV[place] Zhang [address] [phone] Encounter Diagnosis Lumbar radiculopathy(Discharge Diagnosis) - 12/22/24 Discharge Disposition: Home or Self Care Attending Physician: MD Mercado Randolph Y Referring Physician: MD Elana, Esteban Boyle Encounter Type: [facility] Allergies, Adverse Reactions, Alerts No Known Allergies Assessment and Plan Extracted from: Title:Chronic Pain Office Visit Note Author:Jalen field MD, [facility] Date:12/23/24 1. Lumbar radiculopathy Investigations/imaging/labs/consults: - None at this time Interventions: - None at this time - Referral to spine surgery either Dr. Akins (ortho) or Dr. Estes (NSGY) for evaluation of L3/L4 cyst with L4 nerve root compression. - If deemed too high risk candidate for surgery, will consider corticosteroid injections/other procedures in coordination with transplant team approval Medications: - Changes as below:gabapentin 300mg TID. Take 300mg every evening for 5 days and then increase to TID. No interactions noted with anti-rejection medication Physical Therapy: - Patient will continue with PT Alternative Treatments: - None at this time Psych: - None at this time Follow Up: - Follow up as needed Immunizations Given and Recorded Vaccine Date Status [...] Td (Adult) 01/13/12 Re corded Mental Status 12/22/24 Barriers to Learning one year None evide nt Mandatory Health Literacy Documentation Yes Health Literacy Communication Barriers N ever Primary Language Angolan Problem List Condition Confirmation Course Effective Dates [...] Active Heart transplanted 3 Confirmed 05/30/14 Active Hx of skin malignancy Confirmed Active [...] skin Confirmed Active Seborrheic keratosis Confirmed Active Weight disorder Confirmed Active 1RHC, [...] Effective Dates Health Status Clinical Service Informant Lumbar radiculopathy Discharge Diagnosis 12/22/24 Procedures Procedure Date Related Diagnosis Body Site [...] Compl eted 1ED&C 2chin 3SCC 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 22heart 604296 and 2011 24EGD Vital Signs Most recent to oldest [Reference Range]: 1 Height 178.2 cm (12/22/24 1:46 PM) Patient Weight 89.9 kg (12/22/24 1:46 PM) Body Mass Index 28.31 kg/m2 (12/22/24 1:46 PM) Temperature [36.5-37.9 DegC] 36.5 DegC (12/22/24 1:46 PM) Heart Rate 91 bpm (12/22/24 1:46 PM) Blood Pressure 161/81mmHg (12/22/24 1:46 PM) Cuff Pulse Pressure 80 mmHg (12/22/24 1:46 PM) BP Location # 1 Right Arm (12/22/24 1:46 PM) Social History Social History Type Response Smoking Status Never smoked cigaret elizabeth Sex Male Sex Representation Male (finding) Chronic Pain Outpt Note * MD Tea, Dennis: VASILIY Mercado MD, Chad Bell: MODIFY Event Display: Chronic Pain Outpt Note Authored Date: [id number] Chief Complaint low back pain History of Present Illness Mamie Rodrigues is a 74 year-old Male with a past medical history significant for heart transplant (2013), early onset Parkinsons, CKD 3, HTN, HLD, GERD, BPH who was referred to the pain clinic for evaluation for back and leg pain. He began having low back pain that radiates to his bilateral buttock/thigh pain at the end of . He was playing golf when he couldn't walk and required assistance. Prior to this he was playinggolf 2-3 times per week. he describes his pain as sharp and shooting, but no assoicated paraesthesia. His pain is relieved with sitting and exacerbated with prolonged walking, tiwsting, and back extension. His pain has progressed to the point of needing to use a walker and he has lost 18lb unintentionally. 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 He has not seen a orthopedic or neurosurgeon yet. Patient endorses weakness in the legs. Patient denies bowel or bladder incontinence, Denies symptoms of saddle anesthesia, denies fevers/chills/night sweats, admits to unintentional weight loss. Psychosocial Factors: The patient describes their mood as normal (not depressed/anxious, etc). The patient denies suicidal ideation. The patient's sleep has been moderately affected affected by the pain. The patient's activities of daily living has been severely affected affected by the pain. Specialists Seen: The patient was referred by MD Huitron David H. The patient does not have a controlled substance contract with another provider. Investigations Performed and Pertinent Image Review by Date: Images reviewed as listed below in diagnostics section Lumbar Spine MRI, Allergies: NKA Medications: Current: None Past: None Poorly Tolerated: None Anticoagulants currently used:. None Noninterventional Techniques: TENs: yes, partially helpful Chiropractor - tried, partially helpful Physical Therapy - tried, partially helpful Interventional Pain Procedures/Effect: None Pertinent Surgeries: Heart transplant (2013) Surgical Considerations: Patient is a high-risk surgical candidate PCP notified about potential for long-term steroid injections?: Yes - this note will be forwarded Review of Systems Complete 14 point review of systems is negative except for what is stated above and in the patient chart. Physical Exam Vitals & Measurements T: 36.5 °C HR: 91 (Monitored) BP: 161/81 HT: 178.2 cm WT: 89.9 kg WT: 89.900 kg (Dosing) BMI: 28.31 General: No apparent distress. Accompanied by in the office today. Assistive Devices: Rollator walker. Grooming: appropriate Eyes: pupils equal and round, sclera anicteric. ENT: MMM. Resp: Non-labored breathing CV: Regular rate. 2+ radial pulses bilaterally. Abdomen: Non-distended Psych: Oriented; appropriate affect, non-pressured speech. Skin: No rashes or lesions appreciated on exposed skin. Warm, dry, intact. Neuromuscular Exam: Lower Extremities: Upon inspection, the patient is seated in a comfortable position. Rises from a seated position with some difficulty due to pain. Upon inspection there is notevidence of scoliosis. Muscle bulk appears adequate. There is not evidence of erythema, edema in the extremities. Ambulates unassisted; gait is normal. Palpation positive for midline lumbar tenderness; positive for lumbar paraspinous tenderness bilaterally. There is tenderness to palpation over the PSIS bilaterally. There is not tenderness to palpation over the greater trochanter. Active ROM exam of lumbar spine reveals limited extension There is pain with lumbar extension There is no pain with lumbar oblique extension There is no pain with lumbar flexion Right Left Motor Strength: Hip flexion (L1,L2,L3) 5/5 5/5 Hip adduction (L2,L3) 5/5 5/5 Knee flexion (S1) 5/5 5/5 Knee extension (L3,L4) 5/5 5/5 Dorsiflexion (L4,L5) 5/5 5/5 Plantarflexion (S1) 5/5 5/5 EHL (L5) 5/5 5/5 Sensory exam to light touch isintact in the L2-S1 dermatomes in the bilateral lower extremities. Diagnostic Results MRI performed at [facility]. Outside record reviewed Assessment/Plan 1. Lumbar radiculopathy Investigations/imaging/labs/consults: - None at this time Interventions: - None at this time - Referral to spine surgery either Dr. Akins (ortho) or Dr. Estes (NSGY) for evaluation of L3/L4 cyst with L4 nerve root compression. - If deemed too high risk candidate for surgery, will consider corticosteroid injections/other procedures in coordination with transplant team approval Medications: - Changes as below:gabapentin 300mg TID. Take 300mg every evening for 5 days and then increase toTID. No interactions noted with anti-rejection medication Physical Therapy: - Patient will continue with PT Alternative Treatments: - None at this time Psych: - None at this time Follow Up: - Follow up as needed Attestation Attestation: Patient was seen with the resident. I verified the document and agree with the assessment and plan. -Chad Mercado M.D. 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 Cardiogenic Shock| Status: Inactive Changing skin lesion Chronic systolic heart failure Coronary artery disease Cough Eczema Encounter for monitoring tacrolimus therapy Epidermal cyst Heart transplanted Hx of skin malignancy Hyperlipidemia Hypertension Immunosuppression Inflamed seborrheic keratosis Left ventricular assist device present Low back pain Multiple nevi Parkinsons Personal history of squamous cell carcinoma of skin Seborrheic keratosis SK (solar keratosis) Weight disorder Xerosis cutis Resolved Closed fracture [...] mg= 1 tab, PO, Daily, 3 refills aspirin(aspirin 81 mg oral tablet, chewable), 81 mg= 1 tab, PO, Daily calcium and vitamin D combination(Os-Ron 500 + [...] mg= 1 cap, PO, q12h, 3 refills pantoprazole, 40 mg, PO, Daily rasagiline(rasagiline 1 mg oral tablet), 1 mg= 1 tab, PO, Daily sildenafil(sildenafil 50 mg oral tablet), 100 mg= 2 tab, PO, Daily, 1 refills sirolimus(sirolimus 2 mg oral tablet), 2 mg= 1 tab, PO, Daily solifenacin(solifenacin 5 mg oral tablet), 5 mg= 1 tab, PO, Daily tamSULOsin(tamsulosin 0.4 mg oral capsule), 0.8 mg= 2 cap, PO, Daily valsartan(valsartan 80 mg oral tablet), 80 mg= 1 tab, PO, Daily, 3 refills Allergies NKA Social History Smoking Status Never smoked cigarettes Alcohol - Comments: USAUDIT-C score = 1 Exercise Times per week:Daily Exercise type:Walking - Comments: Golf 3-4 times a week Substance Abuse - Denies Substance Abuse Tobacco - Denies Tobacco Use Intake (IView) Smoking History Cigarette smoker: Never smoked cigarettes Tobacco Product Use: Never used other tobacco products Family History Alzheimer disease: Mother. Bone cancer..: Father. Breast cancer: Sister. Coronary artery disease: Father and Brother. Heart attack: Father and Brother. Renal cancer..: Father. Health Status Family Member(s) Family Member(s) Relationship: Mother, Age: 71 Years, Cause: Complications of dementia Relationship: Father, Age: 69 Years, Cause: Cancer Immunizations Vaccine Date Status influenza virus vaccine, inactivated 08/09/2022 Given SARS-CoV-2 (COVID-19) mRNA-1273 vaccine 08/08/2021 Recorded influenza virus vaccine, inactivated 07/31/2021 Recorded tetanus/diphtheria/pertuss, acel (Tdap) 05/16/2021 Recorded SARS-CoV-2 (COVID-19) mRNA-1273 vaccine 12/07/2020 Recorded SARS-CoV-2 (COVID-19) mRNA-1273 vaccine 11/09/2020 Recorded influenza virus vaccine, inactivated 07/26/2020 Given influenza virus vaccine, inactivated 08/04/2019 Given influenza virus vaccine, inactivated 07/21/2017 Given pneumococcal 23-valent vaccine 07/19/2016 Given influenza virus vaccine, inactivated 07/19/2016 Given pneumococcal 13-valent vaccine 07/05/2015 Given influenza virus vaccine, inactivated 05/2015 Recorded tetanus toxoids-diphtheria, Td (Adult) 01/13/2012 Recorded Recommendations Health Maintenance Pending (in the next year) OverDue Medicare Annual Wellness Visit due 08/09/23 and every 1 year Colorectal Cancer Screening due 01/02/24 and every 10 year Adult Influenza Vaccine due 03/29/24 and every 1 year Due Adult Social Determinants of Health Screening due 12/23/24 Unknown Frequency Seasonal COVID 19 Vaccine due 12/23/24 Unknown Frequency Shingles Vaccine due 12/23/24 One-time only Satisfied (in the past 1 year) Satisfied Body Mass Index on 12/22/24. Satisfied by MADELYN Cardenas Jessica Diabetes Management A1c on 05/28/24. Satisfied by Contributor_system, [id number] Lipid Screening on 05/28/24. Satisfied by Contributor_system, [id number] Electronic Signature on File CC: Uziel Ahmadi MD [address] [place] [id number] CC: Esteban Huitron MD [address] [facility] [address] [facility] [address] Electronically Reviewed/Signed by: Dennis Metcalf MD Author Signature Dt/Tm:12/23/2024 10:54 AM Resident Division of General Surgery Electronically Reviewed/Signed by: Chad Mercado MD Cosigner Signature Dt/Tm: 12/23/2024 12:43 PM Department of Anesthesia SK Patient Care team information Care Team Personnel Name: Bonita Ritchie Francis Position: Pharmacist Schedule II Member Role: Pharmacy - Lifetime Address: [facility] [address] [place] [address] [place] Name: MAGALI Clark Kathleen R Position: Nurse Pract - Card Intv Cardiology Member Role: Lifetime Relationship Address: [address] [address] [place] Telecom: [phone] Name: Bonita Roy Paul T Position: Pharmacist Schedule II Member Role: Pharmacy - Lifetime Address: [facility] [address] [place] [address] [place] Name: MAGALI Geronimo Angela M Position: Nurse Pract - Card Crit Care Member Role: Lifetime Relationship Address: [address] [place] [address] [place] Telecom: [phone] Name: MD Galdino, Uziel Georges Position: Physician - Internal Med Member Role: Primary Care Provider Address: [address] [place] [address] Telecom: [phone] Name: MAGALI Caruso Thomas Position: Nurse Pract - Heart Failure Member Role: Lifetime Relationship Address: [address] [address] [place] Telecom: [phone] Name: Bonita Pastor Shailja Position: Pharmacist Member Role: Pharmacy - Lifetime Address: [facility] [address] [place] [address] [place] Name: MD Tanner, Roberto Position: Physician - CT Surgery Member Role: Lifetime Relationship Address: [address] [address] [place] Telecom: [phone] Care Team Related Persons Name: WILMER RODRIGUES Name: CESAR RODRIGUES Insurance Providers Guarantor name: MAMIE RODRIGUES Health Plan Information #: 3 Payer: [facility] Member Number: [id number] Policy Number: NA Group Number: NA Health Plan Information #: 2 Payer: MEDICARE Member Number: [id number] Policy Number: NA Group Number: NA Health Plan Information #: 1 Payer: [facility] Member Number: [id number] Policy Number: NA Group Number: NA
--- OUTSIDE RECORDS SUMMARY | 2025-01-27 00:41 | External Medical Summary | Continuity of Care Document ---
Author Name Unknown Organization [facility] [address] [facility] [address] [place] [phone] Care Team Providers Care Pr Intern Name Role Phone Uziel Ahmadi Primary Care Physician [phone] Encounter [facility] [id number] Date(s): 12/31/24 - 12/31/24 [facility] [address] [facility] [place] [address] [facility], [facility] [address], [address] [place] [id number] [phone] Encounter Diagnosis Lumbar stenosis with neurogenic claudication(Discharge Diagnosis) - 12/31/24 Discharge Disposition: Home or Self Care Attending Physician: MD Akins Jesse E Encounter Type: [facility] [place] Allergies, Adverse Reactions, Alerts No Known Allergies Assessment and Plan Extracted from: Title:Clinical Document Author:MD Dominguez Ian Date:12/31/24 ORTHOPAEDICS OUTPATIENT NOTE Name: MAMIE RODRIGUES Patient Number: [id number] : 1950 Date of Service: 12/31/2024 Chief Complaint: Neurogenic claudication, low back pain HPI: Mr. Rodrigues is a 74-year-old gentleman presenting to orthopedic spine clinic as a new patient for low back pain as well as neurogenic claudication type symptoms. The patient states that for the past 3 to 4 months this the symptoms have been worsening, he is from [place] and has been seeing providers at there but has a complex past medical history regard to a cardiac transplant back in 2014 done here at [facility]. He states that the low back pain that radiates bilateral posterior thighs and towards the calves. He is unable to stand for longer than 3 to 4 minutes without having to sit down this is even worse if he is having to walk. He used to golf on trips go to the grocery store he is unable to do so at this time. He is also been using a walker and other gait aids more often to help with his balance. He denies any issues with dexterity, denies any bowel or bladder symptoms but does notice some more difficulty with coordination. Denies any specific focal weakness or numbness and tingling in bilateral lower extremities. Cardiac transplant 2013, CKD3, early Parkinson's, no blood thinners Current Home Meds: (Last Updated 12/22 14:56) amLODIPine (amLODIPine 5 mg oral tablet) 5 mg PO Daily Take 1 tab (5 mg) by mouth daily aspirin (aspirin 81 mg oral tablet, chewable) 81 mg PO Daily calcium and vitamin D combination (Os-Ron 500 + D) 1 tab PO bid carbidopa-levodopa (carbidopa-levodopa 25 mg-100 mg oral tablet) 2 tab PO bid fluocinonide topical (fluocinonide 0.05% topical cream) 1 appl topical bid To itchy red spots of eczema BID as needed. gabapentin (gabapentin 300 mg oral capsule) 300 mg PO tid metoprolol (metoprolol succinate 25 mg oral tablet, extended release) 25 mg PO qhs mycophenolate mofetil (mycophenolate mofetil 250 mg oral capsule) 250 mg PO q12h pantoprazole 40 mg PO Daily rasagiline (rasagiline 1 mg oral tablet) 1 mg PO Daily sildenafil (sildenafil 50 mg oral tablet) 100 mg PO Daily 1 hour before sexual activity sirolimus (sirolimus 2 mg oral tablet) 2 mg PO Daily HAZARDOUS MEDICATION | tablet: green | oral soln: Nursing - teal, Pharmacy - yellow - L Jose Daniel 12/16 10:32 solifenacin (solifenacin 5 mg oral tablet) 5 mg PO Daily tamSULOsin (tamsulosin 0.4 mg oral capsule) 0.8 mg PO Daily valsartan (valsartan 80 mg oral tablet) 80 mg PO Daily Allergies and Sensitivities: NKA Past Medical History: Problems: Parkinsons Multiple nevi Epidermal cyst Inflamed seborrheic keratosis SK (solar keratosis) Encounter for monitoring tacrolimus therapy Xerosis cutis Changing skin lesion Low back pain Weight disorder Hx of skin malignancy Cough Eczema ACTINIC KERATOSIS Seborrheic keratosis Personal history of squamous cell carcinoma of skin 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 Orthostatic: Last Updated 06/12/16 12:30 Date Lying 5 Min BP Lying 5 Min HR Standing 1 Min BP Standing 1 Min HR Standing 3 Min BP Standing 3 Min HR 06/12/16 162/113 88 Orthostatic blood pressures are the last 3 documented. Height and Weight: Last Updated 12/22/24 13:46 Date BMI Wt(kg) Wt(lb) Method Ht(cm) (ft-in) Method 12/22/24 28.31 89.9 198 Standing Scale 178.2 5-10 Standing 11/22/24 88.1 194 Standing Scale 10/13/24 90.8 200 Standing Scale Heights and Weights are the last 3 documented. Physical Exam General: Well-appearing, no acute distress, cooperative Negative Mike's bilaterally, no sustained clonus bilaterally, no hyperreflexia in the biceps, triceps, brachioradialis, patellar, Achilles reflexes. 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 Additionally there is central lateral recess stenosis most notable at L2-3, there is additional lateral recess stenosis at L1 to as well as extending down to L3-4 and L4-5 but again worse about his L2-3. No significant foraminal stenosis. Degenerative L3-4 there is a facet cyst on the right side. ASSESSMENT: Mr. Rodrigues is a 74-year-old gentleman with low back pain and neurogenic claudication is been worsening over the last 3 months to where he is now using a walker to ambulate and cannot stand for any more than 3 to 4 minutes. Conservative management has been unsuccessful to this point. PLAN: We had a long discussion with patient with his clinical symptoms, imaging findings, and treatment options. He has low back pain and neurogenic claudication with several areas stenosis most notable L2-3 centrally, as well as lateral recess at L3-4, 4 5, L1-2. He has not had success with conservative management to this point and it severely affecting his life. We did discuss the possibility of injection however his symptoms seem to be progressively worsening and they are not as interested in this option at this time. We discussed possibility of surgical intervention in the form of a decompression at these levels as well as a posterior spinal instrumented fusion from L2-L5 as he has such congenital stenosis with nerve facet likely need to violate these 2 perform an adequate decompression. We discussed risk of surgery which include but not read to bleeding, infection, nerve logic damage, dural tear, complications of prone surgery including ulnar nerve neuropathy, and this list is not exhaustive. Ultimately the patient opted for surgical invention, we will plan to schedule surgery. Patient understands agrees with plan, questions and concerns were answered. Physician Attestation: x I saw and evaluated the patient on the date of service. Discussed with resident and agree with resident s finding and plan as documented in the resident s note. Have not seen the patient. Have reviewed the note. Have not seen patient, have reviewed the note, and I have personally discussed with the resident and/or physician trouble lineman on the date of service. Other: Immunizations Given and Recorded Vaccine Date Status [...] Td (Adult) 01/13/12 Re corded Mental Status 12/31/24 Barriers to Learning one year Vision imp airment, Other: wear glasses Mandatory Health Literacy Documentation Yes Health Literacy Communication Barriers N ever Primary Language Irish Problem List Condition Confirmation Course Effective Dates [...] 12, CO 4.5/2.2, TPG 3, PVR 0.7 MCKOEN. 2Acute anterior-lateral STEMI, late presentation, 12 hours; Cath, 05/26/13: pLAD 100%, PCI VF with wire, shock x7, thrombectomy, BMS 3x15; mLAD 30-40%, Circ irregs, RCA 20%; EDP 38-40; EF 20%. 3Bi-Caval anastomosis. 4Due to orthotopic heart transplant. 5WOUND old LVAD driveline site incision 1+ KLEBSIELLA PNEUMONIAE (ESBL) Carbapenemase positive: "This isolate demonstrates carbapenemase production."Wound.Cx June 27, 2014 09:56 Wound Culture old LVAD driveline site incision 1+Klebsiella pneumoniae (ESBL) Carbapenemase positive: "This isolate demonstrates carbapenemase production." 7Heartware LVAD, explant ECMO; Bridge to transplant. Diagnosis Diagnosis Type Effective Dates Health Status Clinical Service Informant Lumbar stenosis with neurogenic claudication Discharge Diagnosis 12/31/24 Procedures Procedure Date Related Diagnosis Body Site [...] Completed Left ventricular assist [place] ce, Heartware 06/03/13 Completed cardiac catheterization and PCI 21 05/26/13 Completed Tonsillectomy 1952 Completed Biopsy Completed Biopsy of heart Completed colonoscopy 02/18/07 23 Co mpleted Excision squamous cell cance r left cheek Completed Mohs micrographic surgery Completed Procedure 24 Completed stress echo 04/20/13 Compl eted 1ED&C 2chin 3SCC Left Sup [place] SCC Right Pre-auricular 4A- right antihelix B- [...] RCA 20%; EDP 38-40; EF 20%. 22heart [id number] and 2011 24EGD Results Radiology Reports * Exam Date Time Procedure Performing Provider Status 12/31/24 10:18 AM XR Spine Lumbosacral 2 or 3 Views Ricardo Garrido; Final Notes: (XR Spine Lumbosacral 2 or 3 Views) Reason For Exam: Low back pain XR Spine Lumbosacral 2 or 3 Views EXAMINATION: XR Spine Lumbosacral 2 or 3 Views CLINICAL HISTORY: M54.50: Low back pain, unspecified; Upright Low back pain COMPARISON: October 19, 2024 MRI from outside institution FINDINGS: AP and lateral views the lumbar spine. There are 5 nonrib-bearing lumbar-type vertebral bodies. Thevertebral body heights are maintained. Moderate multilevel disc degenerative change throughout the lumbar spine, most pronounced at L4-L5. Hypertrophic facet degenerative changes from L3-L4 through L5-S1. Mild degenerative changes sacroiliac joints. Mild osteoarthritis of the sacroiliac joints. Median sternotomy noted. Patchy atherosclerotic vascular calcification of the aorta. IMPRESSION: Moderate multilevel disc and lower lumbar facet degenerative changes, most pronounced at L4-5. Workstation ID: [id number] Final Dictated by:MD Chambers Cristy N Dictated DT/TM:12/31/2024 10:34 Signed by:MD Chambers Cristy N Signed (Electronic Signature):12/31/2024 10:33 Social History Social History Type Response Smoking Status Former Smoker, quit > 1 yr Sex Male Sex Representation Male (finding) Pre-OP H & P * MD Akins Jesse E: MODIFY MD Akins Jesse E: MODIFY Event Display: Pre-OP H & P Authored Date: PRE-OPERATIVE HISTORY AND PHYSICAL Name: MAMIE RODRIGUES Patient Number: [id number] : 1950 Date of Service: 12/31/2024 PRE-OP Diagnosis: Neurogenic claudication, multi-level lumbar stenosis Planned Procedure: L1-L5 laminectomy, L2-L5 PSIF, poss infuse Chief Complaint: Neurogenic claudication, low back pain HPI: Mr. Rodrigues is a 74-year-old gentleman presenting to orthopedic spine clinic as a new patient for low back pain as well as neurogenic claudication type symptoms. The patient states that for the past 3 to 4 months this the symptoms have been worsening, he is from [place] and has been seeing providers at there but has a complex past medical history regard to a cardiac transplant back in 2014 done here at [facility]. He states that the low back pain that radiates bilateral posterior thighs and towards the calves. He is unable to stand for longer than 3 to 4 minutes without having to sit down this is even worse if he is having to walk. He used to golf on trips go to the grocery store he is unable to do so at this time. He is also been using a walker and other gait aids more often tohelp with his balance. He denies any issues with dexterity, denies any bowel or bladder symptoms but does notice some more difficulty with coordination. Denies any specific focal weakness or numbnessand tingling in bilateral lower extremities. 14 point review of systems was performed and is otherwise negative except for HPI and PMH. Cardiac transplant 2014, CKD3, early Parkinson's, no blood thinners Current Home Meds: (Last Updated 12/22 14:56) amLODIPine (amLODIPine 5 mg oral tablet) 5 mg PO Daily Take 1 tab (5 mg) by mouth daily aspirin (aspirin 81 mg oral tablet, chewable) 81 mg PO Daily calcium and vitamin D combination (Os-Ron 500 + D) 1 tab PO bid carbidopa-levodopa (carbidopa-levodopa 25 mg-100 mg oral tablet) 2 tab PO bid fluocinonide topical (fluocinonide 0.05% topical cream) 1 appl topical bid To itchy red spots of eczema BID as needed. gabapentin (gabapentin 300 mg oral capsule) 300 mg PO tid metoprolol (metoprolol succinate 25 mg oral tablet, extended release) 25 mg PO qhs mycophenolate mofetil (mycophenolate mofetil 250 mg oral capsule) 250 mg PO q12h pantoprazole 40 mg PO Daily rasagiline (rasagiline 1 mg oral tablet) 1 mg PO Daily sildenafil (sildenafil 50 mg oral tablet) 100 mg PO Daily 1 hour before sexual activity sirolimus (sirolimus 2 mg oral tablet) 2 mg PO Daily HAZARDOUS MEDICATION | tablet: green | oral soln: Nursing - teal, Pharmacy - yellow - L Jose Daniel 12/16 10:32 solifenacin (solifenacin 5 mg oral tablet) 5 mg PO Daily tamSULOsin (tamsulosin 0.4 mg oral capsule) 0.8 mg PO Daily valsartan (valsartan 80 mg oral tablet) 80 mg PO Daily Allergies and Sensitivities: NKA Past Medical History: Problems: Parkinsons Multiple nevi Epidermal cyst Inflamed seborrheic keratosis SK (solar keratosis) Encounter for monitoring tacrolimus therapy Xerosis cutis Changing skin lesion Low back pain Weight disorder Hx of skin malignancy Cough Eczema ACTINIC KERATOSIS Seborrheic keratosis Personal history of squamous cell carcinoma of skin 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 Orthostatic: Last Updated 06/12/16 12:30 Date Lying 5 Min BP Lying 5 Min HR Standing 1 Min BP Standing 1 Min HR Standing 3 Min BP Standing 3 Min HR 06/12/16 162/113 88 Orthostatic blood pressures are the last 3 documented. Height and Weight: Last Updated 12/22/24 13:46 Date BMI Wt(kg) Wt(lb) Method Ht(cm) (ft-in) Method 12/22/24 28.31 89.9 198 Standing Scale 178.2 5-10 Standing 11/22/24 88.1 194 Standing Scale 10/13/24 90.8 200 Standing Scale Heights and Weights are the last 3 documented. Physical Exam General: Well-appearing, no acute distress, cooperative Negative Mike's bilaterally, no sustained clonus bilaterally, no hyperreflexia in the biceps, triceps, brachioradialis, patellar, Achilles reflexes. 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 Additionally there is central lateral recess stenosis most notable at L2-3, there is additional lateral recess stenosis at L1 to as well as extending down to L3-4 and L4-5 but again worse about his L2-3. No significant foraminal stenosis. Degenerative L3-4 there is a facet cyst on the right side. ASSESSMENT: Mr. Rodrigues is a 74-year-old gentleman with low back pain and neurogenic claudication isbeen worsening over the last 3 months to where he is now using a walker to ambulate and cannot stand for any more than 3 to 4 minutes. Conservative management has been unsuccessful to this point. PLAN: We had a long discussion with patient with his clinical symptoms, imaging findings, and treatment options. He has low back pain and neurogenic claudication with several areas stenosis most notable L2-3 centrally, as well as lateral recess at L3-4, 4 5, L1-2. He has not had success with conservative management to this point and it severely affecting his life. We did discuss the possibility of injection however his symptoms seem to be progressively worsening and they are not as interested in this option at this time. We discussed possibility of surgical intervention in the form of a decompression at these levels as well as a posterior spinal instrumented fusion from L2-L5 as he has suchcongenital stenosis with nerve facet likely need to violate these 2 perform an adequate decompression. We discussed risk of surgery which include but not read to bleeding, infection, nerve logic damage, dural tear, complications of prone surgery including ulnar nerve neuropathy, and this list is not exhaustive. Ultimately the patient opted for surgical invention, we will plan to schedule surgery.Patient understands agrees with plan, questions and concerns were answered. Physician Attestation: x I saw and evaluated the patient on the date of service. Discussed with resident and agree with resident’s finding and plan as documented in the resident’s note. Patient comes in severe multilevel stenosis most notably at L2-L3 in the setting of underlying congenital stenosis due to the orientation of the facets to 3 discussed about treatment options further trying a steroid injection patient not interested in magnitude given his progressive decline in functionality has been using a walker over the last 3 weeks due to this and he would like to move forward decompressive surgery when adequately decompress his facets particularly area where his congenitalstenotic at 2 3 were to take the facets and the fusion in the below that at 3 4 has associated facet cyst and associated L4 foraminal stenosis so plan would be for an L1/2 down to L4/L5 laminectomy and L2-L5 fusion I discussed goal of surgery to get pressure off his nerves to help his leg symptoms he he does not appear to have any cervical myelopathy symptoms do not think we need to get a cervical MRI in the setting of his underlying lumbar congenital congenital stenosis I discussed risk include infection bleeding stroke DVT blood clot CSF leak dural tear epidural hematoma prone related compli cations like ulnar nerve dysfunction blindness all the question were answered addressed consent wasa day clinic Have not seen the patient. Have reviewed the note. Have not seen patient, have reviewed the note, and I have personally discussed with the resident and/or physician trouble lineman on the date of service. Other: Electronic Signature on File Electronically Reviewed/Signed by: Marquis Dominguez MD Author Signature Dt/Tm:12/31/2024 11:20 AM Resident Division of Orthopaedics Electronically Reviewed/Signed by: Mynor Akins MD Cosigner Signature Dt/Tm: 12/31/2024 01:37 PM Division of Orthopaedics ID Ortho Outpt Note * MD Akins Jesse E: MODIFY MD Akins Jesse E: MODIFY Event Display: Ortho Outpt Note Authored Date: [id number] ORTHOPAEDICS OUTPATIENT NOTE Name: MAMIE RODRIGUES Patient Number: [id number] : 1950 Date of Service: 12/31/2024 Chief Complaint: Neurogenic claudication, low back pain HPI: Mr. Rodrigues is a 74-year-old gentleman presenting to orthopedic spine clinic as a new patient for low back pain as well as neurogenic claudication type symptoms. The patient states that for the past 3 to 4 months this the symptoms have been worsening, he is from [place] and has been seeing providers at there but has a complex past medical history regard to a cardiac transplant back in 2014 done here at [facility]. He states that the low back pain that radiates bilateral posterior thighs and towards the calves. He is unable to stand for longer than 3 to 4 minutes without having to sit down this is even worse if he is having to walk. He used to golf on trips go to the grocery store he is unable to do so at this time. He is also been using a walker and other gait aids more often tohelp with his balance. He denies any issues with dexterity, denies any bowel or bladder symptoms but does notice some more difficulty with coordination. Denies any specific focal weakness or numbnessand tingling in bilateral lower extremities. Cardiac transplant 2013, CKD3, early Parkinson's, no blood thinners Current Home Meds: (Last Updated 12/22 14:56) amLODIPine (amLODIPine 5 mg oral tablet) 5 mg PO Daily Take 1 tab (5 mg) by mouth daily aspirin (aspirin 81 mg oral tablet, chewable) 81 mg PO Daily calcium and vitamin D combination (Os-Ron 500 + D) 1 tab PO bid carbidopa-levodopa (carbidopa-levodopa 25 mg-100 mg oral tablet) 2 tab PO bid fluocinonide topical (fluocinonide 0.05% topical cream) 1 appl topical bid To itchy red spots of eczema BID as needed. gabapentin (gabapentin 300 mg oral capsule) 300 mg PO tid metoprolol (metoprolol succinate 25 mg oral tablet, extended release) 25 mg PO qhs mycophenolate mofetil (mycophenolate mofetil 250 mg oral capsule) 250 mg PO q12h pantoprazole 40 mg PO Daily rasagiline (rasagiline 1 mg oral tablet) 1 mg PO Daily sildenafil (sildenafil 50 mg oral tablet) 100 mg PO Daily 1 hour before sexual activity sirolimus (sirolimus 2 mg oral tablet) 2 mg PO Daily HAZARDOUS MEDICATION | tablet: green | oral soln: Nursing - teal, Pharmacy - yellow - L [facility] 12/16 10:32 solifenacin (solifenacin 5 mg oral tablet) 5 mg PO Daily tamSULOsin (tamsulosin 0.4 mg oral capsule) 0.8 mg PO Daily valsartan (valsartan 80 mg oral tablet) 80 mg PO Daily Allergies and Sensitivities: NKA Past Medical History: Problems: Parkinsons Multiple nevi Epidermal cyst Inflamed seborrheic keratosis SK (solar keratosis) Encounter for monitoring tacrolimus therapy Xerosis cutis Changing skin lesion Low back pain Weight disorder Hx of skin malignancy Cough Eczema ACTINIC KERATOSIS Seborrheic keratosis Personal history of squamous cell carcinoma of skin 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 Orthostatic: Last Updated 06/12/16 12:30 Date Lying 5 Min BP Lying 5 Min HR Standing 1 Min BP Standing 1 Min HR Standing 3 Min BP Standing 3 Min HR 06/12/16 162/113 88 Orthostatic blood pressures are the last 3 documented. Height and Weight: Last Updated 12/22/24 13:46 Date BMI Wt(kg) Wt(lb) Method Ht(cm) (ft-in) Method 12/22/24 28.31 89.9 198 Standing Scale 178.2 5-10 Standing 11/22/24 88.1 194 Standing Scale 10/13/24 90.8 200 Standing Scale Heights and Weights are the last 3 documented. Physical Exam General: Well-appearing, no acute distress, cooperative Negative Mike's bilaterally, no sustained clonus bilaterally, no hyperreflexia in the biceps, triceps, brachioradialis, patellar, Achilles reflexes. 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 Additionally there is central lateral recess stenosis most notable at L2-3, there is additional lateral recess stenosis at L1 to as well as extending down to L3-4 and L4-5 but again worse about his L2-3. No significant foraminal stenosis. Degenerative L3-4 there is a facet cyst on the right side. ASSESSMENT: Mr. Rodrigues is a 74-year-old gentleman with low back pain and neurogenic claudication isbeen worsening over the last 3 months to where he is now using a walker to ambulate and cannot stand for any more than 3 to 4 minutes. Conservative management has been unsuccessful to this point. PLAN: We had a long discussion with patient with his clinical symptoms, imaging findings, and treatment options. He has low back pain and neurogenic claudication with several areas stenosis most notable L2-3 centrally, as well as lateral recess at L3-4, 4 5, L1-2. He has not had success with conservative management to this point and it severely affecting his life. We did discuss the possibility of injection however his symptoms seem to be progressively worsening and they are not as interested in this option at this time. We discussed possibility of surgical intervention in the form of a decompression at these levels as well as a posterior spinal instrumented fusion from L2-L5 as he has suchcongenital stenosis with nerve facet likely need to violate these 2 perform an adequate decompression. We discussed risk of surgery which include but not read to bleeding, infection, nerve logic damage, dural tear, complications of prone surgery including ulnar nerve neuropathy, and this list is not exhaustive. Ultimately the patient opted for surgical invention, we will plan to schedule surgery.Patient understands agrees with plan, questions and concerns were answered. Physician Attestation: x I saw and evaluated the patient on the date of service. Discussed with resident and agree with resident’s finding and plan as documented in the resident’s note. Have not seen the patient. Have reviewed the note. Have not seen patient, have reviewed the note, and I have personally discussed with the resident and/or physician trouble lineman on the date of service. Other: Electronic Signature on File Electronically Reviewed/Signed by: Marquis Dominguez MD Author Signature Dt/Tm:12/31/2024 11:19 AM Resident Division of Orthopaedics Electronically Reviewed/Signed by: Mynor Akins MD Cosigner Signature Dt/Tm: 12/31/2024 01:37 PM Division of Orthopaedics ID Patient Care team information Care Team Personnel Name: Bonita Ritchie Francis Position: Pharmacist Schedule II Member Role: Pharmacy - Lifetime Address: [facility] [address] [place] [address] [place] Name: MAGALI Clark Kathleen R Position: Nurse Pract - Card Intv Cardiology Member Role: Lifetime Relationship Address: [address] [facility] [address] [place] [address] [place] Telecom: [phone] Name: Bonita Roy Paul T Position: Pharmacist Schedule II Member Role: Pharmacy - Lifetime Address: [facility] [address] [place] [address] [place] Name: MAGALI Geronimo Angela M Position: Nurse Pract - Card Crit Care Member Role: Lifetime Relationship Address: [address] [place] [address] [place] Telecom: [phone] Name: MD Ahmadi Michael P Position: Physician - Internal Med Member Role: Primary Care Provider Address: [address] [place] [address] [place] Telecom: [phone] Name: MAGALI Caruso Thomas Position: Nurse Pract - Heart Failure Member Role: Lifetime Relationship Address: [address] [facility] [address] [place] [address] [place] Telecom: [phone] Name: Bonita Pastor Shailja Position: Pharmacist Member Role: Pharmacy - Lifetime Address: [facility] [address] [place] [address] [place] Name: MD Hart Behzad Position: Physician - CT Surgery Member Role: Lifetime Relationship Address: [address] [facility] [address] [place] [address] [place] Telecom: [phone] Care Team Related Persons Name: WILMER RODRIGUES Name: CESAR RODRIGUES Insurance Providers Guarantor name: JORGE DESTINEE Health Plan Information #: 3 Payer: [facility] Member Number: [id number] Policy Number: NA Group Number: NA Health Plan Information #: 2 Payer: [facility] Member Number: [id number] Policy Number: NA Group Number: [id number] Health Plan Information #: 1 Payer: MEDICARE Member Number: [id number] Policy Number: NA Group Number: NA
--- NOTE | 2025-01-27 02:49 | CT Scan Report ---
Exam(s): CT L SPINE EXAM: CT Lumbar Spine Without Intravenous Contrast CLINICAL HISTORY: Reason for exam: fever; R gluteal pain s/p back surgery. TECHNIQUE: Axial computed tomography images of the lumbar spine without intravenous contrast. CTDI is 39.4 mGy and DLP is 1084.4 mGy-cm. Automated exposure control was utilized for the study. A dose lowering technique was utilized adhering to the principles of ALARA. COMPARISON: Prior plain film images of the lumbar spine from August 27, [address] scan of the abdomen pelvis from December 13, 2019. FINDINGS: Vertebrae: Patient is status post posterior decompression and fusion of L2-L5 with transpedicular screws and connecting rods in place.. There is a small amount of air in the dorsal epidural space. No acute fracture. Ankylosis of the sacroiliac joints. Discs/spinal canal/neural foramina: No acute findings. No spinal canal stenosis. Soft tissues: Hepatic steatosis. IMPRESSION: Status post posterior decompression and fusion of L2-L5 with expected postsurgical changes. If there is continued clinical concern, an MRI of the lumbar spine may be of benefit for further evaluation. Electronically signed by: Lois Jordan MD 01/27/25 02:48 AM
[2025-01-27 03:07] VITALS: O2SAT 96
[2025-01-27] MEDS ORDERED: MAGNESIUM HYDROXIDE SUSP 30 ML UDC PO PRN (03:54)
[2025-01-27] MEDS ORDERED: POLYETHYLENE (MIRALAX) 17 GM PACK PO PRN (03:54)
[2025-01-27] MEDS ORDERED: ONDANSETRON INJ 2 MG/ML 2 ML VIAL IV PRN (03:54)
[2025-01-27] MEDS ORDERED: ACETAMINOPHEN 325 MG TAB PO PRN (03:54)
[2025-01-27] MEDS ORDERED: MELATONIN 3 MG TAB PO PRN (03:54)
[2025-01-27 04:32] VITALS: RESP 16
[2025-01-27 07:21] VITALS: BP 121/79; PULSE 90; TEMP 99
[2025-01-27 08:24] LABS: Iron 17 mcg/dl (35-175); Total Iron Binding Cap Calc 235 mcg/dl (250-450); Transferrin 198 mg/dl (200-360); Transferrin (FE) Percent Satur 7 % (20-50); Unsaturated Iron Binding Cap 218 mcg/dl (155-355)
[2025-01-27 08:47] LABS: Folate (Folic Acid),Ser orPlas 13.52 ng/ml (>5.38)
[2025-01-27] MEDS ORDERED: TAMSULOSIN HCL 0.4 MG CAP PO SCH (09:00)
[2025-01-27] MEDS: CARBIDOPA/LEVODOPA 25/100MG TAB PO SCH (09:17)
[2025-01-27] MEDS: MYCOPHENOLATE MOFETIL 250 MG CAP PO SCH (09:17)
[2025-01-27] MEDS: GABAPENTIN 300 MG CAP PO SCH (09:17)
[2025-01-27] MEDS: SIROLIMUS 0.5 MG TABLET PO SCH (09:17)
--- NOTE | 2025-01-27 10:01 | Electrocardiogram Report ---
Test Reason : Blood Pressure : */* mmHG Vent. Rate : 85 BPM Atrial Rate : 85 BPM P-R Int : 146 ms QRS Dur : 126 ms QT Int : 384 ms P-R-T Axes : 32 -9 61 degrees QTcB Int : 456 ms Normal sinus rhythm Right bundle branch block Abnormal ECG When compared with ECG of 19-Mar-2024 07:48, QRS axis Shifted left Confirmed by Elian Butler ([id number]) on 01/27/2025 10:01:13 AM Referred By: REFERRED SELF Confirmed By: Elian Butler
--- NOTE | 2025-01-27 11:33 | Discharge Summary ---
Discharge Summary Date of Service January 27, 2025 Principal Dx & Hospital Course #1 = Principal Diagnosis (1) Fever: Resolved. This may be of a viral etiology. Cultures are negative to date. He is asymptomatic. (2) Anemia: Chronic. No evidence of acute blood loss (3) Heart transplanted: Cardiac transplant in 2013. He is immunosuppressed on CellCept therapy (4) Hypertension: Stable. Continue current medical manage (5) Chronic kidney disease with active medical management without dialysis, stage 3 (moderate): Stable. Monitor intake and output Plan Home today, January 27. Home medications remain the same. 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 Reports fever of 101 F with associated sweating on the day of arrival. Relieved with Tylenol. 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 Did have some buttocks tingling which has resolved, occasional feeling of "darts to skin" on LLE which is relieved with rubbing the area. No current pain. Otherwise specifically denies SOB, cough, URI symptoms, LUTS, skin lesions, or abdominal pain/N/V/D/C. Also denies chest pain or palpitations. Has not been around anyone that has been sick. Reports that his last dental procedure was approximately 2 months ago which was a cleaning and he took his amoxicillin as prescribed. ED evaluation reveals no leukocytosis, H&H 9.6/27.8; PT/INR WNL; CMP creatinine 1.95, BUN 31, glucose 103, AST 12; procalcitonin 0.16; UA without infection; BioFire negative; CXR without acute findings; lumbar spine CT pending official read; EKG NSR with RBBB at 85 bpm. Provided with ceftriaxone 2 g IV and fentanyl 50 mcg IV in ED. Please see Dr. Goncalves's attestation for adjustments/additions to treatment plan. Discharge Exam General-alert and oriented x3, no fever, no chills HEENT-head atraumatic and normocephalic, pupils equal and reactive to light, extraocular muscles intact Neck-no lymphadenopathy or thyromegaly, trachea midline Chest-clear to auscultation. No rales, wheezing or rhonchi Cardiac-regular rate and rhythm, normal S1 and S2 Abdomen-normal bowel sounds, no hepatosplenomegaly Extremities-no cyanosis, clubbing, or edema Neuro-cranial nerves II through XII intact, motor and sensory function within no rmal limits, strength symmetrical, no focal deficits Psych-normal affect, normal mood Discharge Plan Discharge Items Patient Disposition: Home - Self-Care Reason For Visit: FEVER Discharge Diagnosis: Transient fever Activity: Resume your previous activity Non-emergency contact: Primary Care Provider Call non-emergency contact if: your symptoms worsen Follow-up/Referrals: Uziel Ahmadi MD [Primary Care Provider] - Diet: Regular Addtl Attending Provider Instructions: All medications remain the same. See primary care provider soon as possible for follow-up Pending Studies at Discharge: No Stand-Alone Forms: [employer], Smoking Cessation Medications and DC Order Prescriptions: Continued sirolimus 1 mg tablet 2 mg PO QAM solifenacin 5 mg tablet 5 mg PO HS tamsulosin 0.4 mg capsule 0.4 mg PO BID carbidopa-levodopa 25-100 mg tablet 2 tab PO BID fluocinolone 0.01 % cream 1 applic topical BID PRN (Reason: Skin Irritation) metoprolol succinate 25 mg tablet extended release 24 hr 25 mg PO HS valsartan 80 mg tablet 80 mg PO HS rasagiline 1 mg tablet 1 mg PO QAM mycophenolate mofetil [CellCept] 250 mg capsule 250 mg PO BID calcium carbonate-vitamin D3 [Calcium 500 + D] 500 mg(1,250mg) -200 unit Tablet 1 tab PO DAILY amlodipine 10 mg Tablet 5 mg PO HS amoxicillin 500 mg capsule 2,000 mg PO ONCE PRN (Reason: dental procedures) gabapentin 300 mg Capsule 300 mg PO BID Discharge Orders: Discharge Order (Routine); Ordered 01/27/25 Ordered By: Walter Howard Admission Data Admit Date/Time: 01/27/25 01:00 Attending Provider: Walter Howard Admit Provider: Frantz Goncalves Primary Care Provider: Uziel Ahmadi Hospital Stay Data Diagnostic Imagining Performed 01/26/25 22:17 CT lumbar spine wo con Stat Pending Results Patient Have Any Pending Studies at Discharge: No Discharge Instructions Given to Patient (Per Discharging Provider) All medications remain the same. See primary care provider soon as possible for follow-up Total Time Total Time Spent Total Time Spent (In Minutes): 45-minute Coding Level of Care Code 78992 INP/OBS DISCH >30 MIN Diagnoses Fever R50.9 Anemia D64.9 Heart transplanted Z94.1 Hypertension I10 Chronic kidney disease with active medical management without dialysis, stage 3 (moderate) N18.30
[2025-01-27] MEDS ORDERED: METOPROLOL SUCC 25MG EXT REL TAB PO SCH (21:00)
[2025-01-27] MEDS ORDERED: OXYBUTYNIN CHLORIDE XL 5 MG TABCR PO SCH (21:00)
[2025-01-27] MEDS ORDERED: VALSARTAN 80 MG TAB PO SCH (21:00)
[2025-01-27] MEDS ORDERED: amLODIPine BESYLATE 5 MG TAB PO SCH (21:00)
[2025-01-27] MEDS ORDERED: cefTRIAXone SODIUM 2,000 MG/50 ML BAG IV SCH (22:00)
== END 2025-01-27 12:36 | disposition home or self-care (01) ==
LOC: 3N 19:29 → ED 19:29 → SUATTDRO 01-27 01:00 → 3N 01-27 03:51